=== PATIENT | male | born 1945 | race Hispanic/Latino ===

== ENCOUNTER 2017-08-07 18:13 | Inpatient (IN) | payer MEDICARE ==
[~2017-08-07] VITALS: Ht 152.4 cm; Wt 118.5 kg
[2017-08-07 22:04] LABS: BASOPHILS % 0.3 % (0.0-1.0); HEMATOCRIT 44.2 % (38.2-49.6); LYMPHOCYTES # (AUTO) 0.9 (1.0-3.2); LYMPHOCYTES % 7.4 % (18.0-39.1); MEAN CORPUSCULAR HEMOGLOBIN 28.6 pg (28-32); MEAN CORPUSCULAR HGB CONC 33.9 g/dL (31-35); MEAN CORPUSCULAR VOLUME 84.4 fL (81-99); MONOCYTES # (AUTO) 0.9 (0.2-0.8); MONOCYTES % 7.5 % (4.4-11.3); NEUTROPHILS % 84.5 % (38.7-80.0); PLATELET COUNT 188 x10e3/uL (140-360); RED BLOOD COUNT 5.24 x10e6/uL (4.3-5.7); RED CELL DISTRIBUTION WIDTH 14.3 % (11.7-14.4)
[2017-08-07 22:05] LABS: CLARITY,URINE CLOUDY (CLEAR); COLOR,URINE AMBER (YELLOW); KETONES,URINE TRACE (NEGATIVE); LEUKOCYTE ESTERASE ,URINE 1+ (NEGATIVE); NITRITE,URINE NEGATIVE (NEGATIVE); URINE UROBILINOGEN 4 mg/dL (0.2 - 1)
[2017-08-07 22:08] LABS: BILIRUBIN,URINE 2+ (NEGATIVE); PROTEIN,URINE DIPSTICK 2+ (NEGATIVE)
[2017-08-07 22:12] LABS: BACTERIA,URINE MODERATE /HPF; EPITHELIAL CELLS,URINE RARE /LPF
[2017-08-07 22:13] LABS: MUCUS,URINE MODERATE (RARE)
[2017-08-07 22:20] LABS: ALBUMIN 3.6 g/dL (3.5-5.0); ALBUMIN/GLOBULIN RATIO 0.8 (0.8-2.0); ANION GAP 15.3 mmol/L (8-16); CREATININE, SERUM 1.44 mg/dL (0.72-1.25); POTASSIUM 3.3 mmol/L (3.5-5.1)
[2017-08-07] MEDS ORDERED: DIATRIZOATE MEGL/DIATRIZOA SOD 30 ML BTL PO ONE (22:47)
--- NOTE | 2017-08-08 00:05 | Diagnostic Imaging Report ---
CHEST SINGLE (PORTABLE), 08/07/2017 9:36 PM Technique: CHEST SINGLE (PORTABLE) Comparison: None available. Clinical history: Fever Findings: Limited by over penetration. Impression: 1. Mildly enlarged cardiac silhouette likely accentuated by technique. 2. Rounded right hilar 2.6 cm opacity may reflect pulmonary artery, node or lesion. Recommend upright PA and lateral for better evaluation. 3. No acute pulmonary or pleural abnormality. Signed by: Dr Sue Francisco MD on 08/08/2017 12:01 AM
--- NOTE | 2017-08-08 00:21 | Diagnostic Imaging Report ---
EXAM: CT ABDOMEN/PELVIS WO DATE: 08/07/2017 9:36 PM INDICATION: \S\ABD PAIN, FEVER,N,V,D \[id number] \S\2344 \S\Y. No history of prior surgery. COMPARISON: None TECHNIQUE: The abdomen and pelvis were scanned using a multidetector helical scanner. Coronal and sagittal reformations were obtained. Routine protocol performed. IV Contrast: None Oral contrast was administered. FINDINGS: Lack of IV contrast decreases sensitivity in evaluating abdominal and pelvic organs. LOWER THORAX: Right basilar and lingular scarring. LIVER/BILIARY: No masses. No ductal dilatation. GALLBLADDER: Unremarkable SPLEEN: Unremarkable PANCREAS: Unremarkable ADRENALS: No nodules KIDNEYS: No stone disease. No hydronephrosis. GI TRACT: Moderate diffuse dilation of the colon with focal caliber change at the sigmoid, where there is mild focal narrowing and minimal adjacent infiltration of the fat. Possibly pseudosacculation or large diverticulum of the sigmoid proximally. Mild gas and stool is seen distally. VESSELS: Mild atherosclerotic calcification PERITONEUM/RETROPERITONEUM: No free air or fluid LYMPH NODES: No lymphadenopathy REPRODUCTIVE ORGANS/BLADDER: Unremarkable SOFT TISSUES: Small fat-containing umbilical hernia. BONES: No suspicious bone lesions. IMPRESSION: Evaluation of the bowel is degraded by lack of IV contrast. Partial large bowel obstruction with focal caliber change at the sigmoid colon. This could be due to diverticular/ischemic stricture versus neoplasm. Recommend follow up colonoscopy. Signed by: Dr Sue Francisco MD on 08/08/2017 12:17 AM
[2017-08-08] MEDS ORDERED: ACETAMINOPHEN 1000 MG/100 ML IV PRN (01:15)
[2017-08-08] MEDS ORDERED: HYDROMORPHONE 1MG/1ML INJ IV PRN (01:15)
[2017-08-08] MEDS ORDERED: MORPHINE SULFATE 2 MG/ML SYR IV PRN (01:15)
[2017-08-08] MEDS: LEVOFLOXACIN 500MG/D5W 100ML IV SCH (02:00)
[2017-08-08] MEDS: KCL 20MEQ/.9 SOD CHL 1,000 ML IV SCH ×3 (02:00→20:55)
[2017-08-08] MEDS: METRONIDAZOLE 500MG/NS 100ML 100 ML IV SCH ×5 (02:00→23:55)
[2017-08-08] MEDS ORDERED: ONDANSETRON HCL INJ 2 MG/ML VIAL IV PRN (09:30)
[2017-08-08] MEDS ORDERED: MORPHINE SULFATE 5 MG/ML VIAL IV PRN (10:15)
--- NOTE | 2017-08-08 10:30 | History and Physical ---
PCP: Dr. Mark Anthony Christian CONSULTING: Dr. Dave Montalvo CHIEF COMPLAINT 1. Abdominal pain for the past week, progressive for the past 3 days and worsening. 2. Acute diverticulitis of the sigmoid colon. 3. Partial large-bowel obstruction. HISTORY: Patient is a 72-year-old male pending for colonoscopy sometime next week apparently came in with a past week of increasing abdominal pain. CT scan showed possible diverticulitis associated with large-bowel obstruction partially. Patient had abdominal pain. He is otherwise stable at this time. He is pending for further evaluation. He is at baseline with hypertension. Patient's pain improved with pain medication. In the emergency room, CT scan was done. Flagyl and Levaquin initiated. Patient is otherwise stable at this time. PAST MEDICAL HISTORY: Hypertension. PAST SURGICAL HISTORY: Knee surgery. SOCIAL HISTORY: Patient does not smoke or use alcohol. No regular drugs. ALLERGIES: NO KNOWN ALLERGIES. HOME MEDICATIONS: Not available. REVIEW OF SYSTEMS: Abdominal pain, nausea, vomiting, and fever. PHYSICAL EXAMINATION VITAL SIGNS: Temperature was 100.3, blood pressure 134/75, pulse rate 96, respirations 18. GENERAL: Patient is not in acute distress. Pain controlled. HEENT: Normocephalic, atraumatic and anicteric. NECK: Supple grossly. PULMONARY: Diminished breath sounds. CARDIOVASCULAR: Regular rate and rhythm. ABDOMEN: Soft and obese. Tenderness. No rebound or guarding. EXTREMITIES: No cyanosis or edema. NEUROLOGIC: There is no gross focal deficit. LABORATORY: WBC is 11.8, hemoglobin 15, hematocrit 44.2, and platelets 188,000. Chemistry: Sodium 138, potassium 3.3, chloride 105, bicarb is 21, BUN is 19, creatinine 1.4, glucose is 147. Urinalysis shows 1+ leukocyte esterase, wbcs of [address] scan shows partial large-bowel obstruction at the sigmoid area and also inflammation consistent with diverticulitis. IMPRESSION 1. Acute diverticulitis in the sigmoid area. 2. Partial large-bowel obstruction. 3. Abdominal pain. 4. Electrolyte disorder. 5. Dehydration. 6. Urinary tract infection. 7. Fever. PLAN: IV antibiotics. IV fluids. PPI. Obtain calcitonin level. Continue with IV fluids. Replace electrolytes. Consultation with Dr. Dave Montalvo. The patient will need colonoscopy in the future. Job#: [id number] RI
--- NOTE | 2017-08-08 11:47 | Consultation ---
DATE OF CONSULTATION: August 08, 2017 REQUESTING PHYSICIAN: Dr. Peoples REASON FOR CONSULTATION: Colonic partial bowel obstruction. HISTORY OF PRESENT ILLNESS: Mr. Peñaloza is a pleasant, 72-year-old man who has been having some bowel difficulties over the past 6 months. He has had a large amount of borborygmi as well as some bloating and cramping. He has lost significant weight over this timeframe. He comes in with 3 days of worsening abdominal pain, particularly in the left lower quadrant. It is associated with nausea but no vomiting. CT scan is concerning for sigmoid partial obstruction. PAST MEDICAL HISTORY: Hypertension. MEDICATIONS AND ALLERGIES: Reviewed. Please see MAR and medication reconciliation form. SOCIAL HISTORY: No alcohol, tobacco or illicit substance. REVIEW OF SYSTEMS: A 12-system review is positive for that mentioned in HPI, otherwise unremarkable. PHYSICAL EXAMINATION GENERAL: Pleasant, alert, oriented, in no acute distress. HEENT: Pupils are equal, round and reactive to light. NECK: Supple. LUNGS: Clear. CARDIOVASCULAR: S1 and S2. ABDOMEN: Soft. Mildly tender in lower left quadrant. No rebound, guarding or mass. The abdomen is obese. EXTREMITIES: No clubbing, cyanosis or edema. PSYCH: Calm, cooperative. NEUROLOGIC: Alert, oriented. HEM-ONC: No bruising or adenopathy. Electronic health records reviewed for laboratory and radiologic studies as well as history. ASSESSMENT: Partial colonic obstruction of the sigmoid with inflammation concerning for diverticulitis, rule out underlying malignancy. PLAN: At the current time, he can have just ice chips, but should otherwise remain n.p.o. I agree with having him on antibiotics to cover bowel estelle. He should have a surgical consult to follow with us. Given that it is an [id number] issue, we may need to do a colonoscopy earlier if it does not improve as would be anticipated. Thank you very much for allowing me to see Mr. Peñaloza. We will follow with you. Job#: [id number]
[2017-08-08 15:50] VITALS: BP 157/67
[2017-08-08 16:01] VITALS: BP 157/67
[2017-08-08] MEDS: ENOXAPARIN SOD INJ 40 MG/0.4 ML SYR SC SCH (17:40)
[2017-08-08] MEDS ORDERED: FUROSEMIDE40 MG PO (17:48)
[2017-08-08] MEDS ORDERED: LOSARTAN POTASS25 MG PO (17:48)
[2017-08-08] MEDS ORDERED: DICYCLOMINE HCL10 MG PO (17:48)
[2017-08-08 19:59] VITALS: BP 168/79
[2017-08-09 00:47] VITALS: BP 142/66
[2017-08-09] MEDS: LEVOFLOXACIN 500MG/D5W 100ML IV SCH (00:58)
[2017-08-09 05:32] VITALS: BP 167/69
[2017-08-09] MEDS: KCL 20MEQ/.9 SOD CHL 1,000 ML IV SCH ×2 (05:34→07:15)
[2017-08-09] MEDS: METRONIDAZOLE 500MG/NS 100ML 100 ML IV SCH ×3 (06:39→18:10)
[2017-08-09 06:55] LABS: BASOPHILS % 0.1 % (0.0-1.0); EOSINOPHILS % 0.1 % (0.0-6.0); HEMOGLOBIN 14.3 g/dL (14.0-18.0); LYMPHOCYTES # (AUTO) 1.6 (1.0-3.2); LYMPHOCYTES % 21.2 % (18.0-39.1); MEAN CORPUSCULAR HEMOGLOBIN 28.4 pg (28-32); MEAN CORPUSCULAR VOLUME 83.5 fL (81-99); MONOCYTES # (AUTO) 1.1 (0.2-0.8); MONOCYTES % 14.7 % (4.4-11.3); NEUTROPHILS # (AUTO) 4.8 (2.1-6.9); NEUTROPHILS % 63.5 % (38.7-80.0); PLATELET COUNT 224 x10e3/uL (140-360); RED BLOOD COUNT 5.03 x10e6/uL (4.3-5.7); RED CELL DISTRIBUTION WIDTH 14.5 % (11.7-14.4)
[2017-08-09 07:15] LABS: ALBUMIN 3.1 g/dL (3.5-5.0); ALBUMIN/GLOBULIN RATIO 0.8 (0.8-2.0); ANION GAP 14.5 mmol/L (8-16); CALCIUM 9.2 mg/dL (8.4-10.2); CREATININE, SERUM 1.3 mg/dL (0.72-1.25)
[2017-08-09 07:24] LABS: POTASSIUM 2.5 mmol/L (3.5-5.1)
[2017-08-09 08:02] VITALS: BP 184/82
--- NOTE | 2017-08-09 12:33 | Consultation ---
DATE OF CONSULTATION: August 08, 2017 The patient is a 72-year-old male presenting with complaints of abdominal distention and abdominal pain. Patient says he has had problems with his abdomen with pain for about 6 months, but then he says over the last few days he has felt worse. He has had no appetite and not eaten for several days. He is having some diarrhea, but had not had a normal bowel movement. He complains of pain in the lower abdomen. He came to the emergency room where CT of the abdomen and pelvis was done, which revealed findings of thickening and inflammation in the sigmoid colon with dilated proximal colon with some air and stool seen beyond the area of inflammation. Patient denies nausea or vomiting. PAST MEDICAL HISTORY: Significant for hypertension. PAST SURGICAL HISTORY: The only previous surgery is knee surgery. ALLERGIES: HE HAS NO KNOWN DRUG ALLERGIES. MEDICATIONS: At home are not available. FAMILY HISTORY: Noncontributory. SOCIAL HISTORY: The patient does not smoke cigarettes or drink alcohol. REVIEW OF SYSTEMS: As stated above with abdominal pain, anorexia and diarrhea, but also some nausea. PHYSICAL EXAMINATION GENERAL: The patient is awake, alert and in no distress. VITAL SIGNS: Reveal a low-grade fever. Temperature 99.9. He is not tachycardic. HEENT: Reveals no scleral icterus. NECK: Has no masses. LUNGS: Equal breath sounds are clear bilaterally. CARDIAC: Regular rate and rhythm with no murmur. ABDOMEN: Is distended with mild diffuse tenderness greatest in the left lower abdomen. There are no definite signs of peritonitis. EXTREMITIES: No edema. LAB TESTS: The white blood cell count is 11.86, hemoglobin 15, hematocrit 44. Chemistries: Creatinine is mildly elevated at 1.4. BUN is normal. Potassium is 3.3. ASSESSMENT: This is a 72-year-old male with findings most suggestive of sigmoid diverticulitis thought tumor could not be occluded. He has a partial colonic obstruction, but not completely obstructed on the computerized tomography scan or clinically. At this point, recommend keeping the patient n.p.o. and on intravenous fluids and antibiotics. Hopefully the symptoms will improve. Probably, he will need evaluation with a colonoscopy. This was explained to the patient. Thank you for asking me to see Mr. Peñaloza. Job#: [id number] RI
[2017-08-09 12:34] VITALS: BP 158/71
[2017-08-09] MEDS ORDERED: SOD CHL 0.45%/POT CHL 20MEQ 1,000 ML IV SCH (13:00)
[2017-08-09] MEDS ORDERED: POTASSIUM CHLORIDE 10 MEQ TABCR PO NR (13:30)
[2017-08-09] MEDS: POTASSIUM CHLORIDE 60 MEQ in SODIUM CHLORIDE 0.45% 1,000 ML IV SCH (14:43)
[2017-08-09 16:27] VITALS: BP 190/79
[2017-08-09] MEDS: NIFEDIPINE CR 30 MG TAB PO SCH (17:04)
[2017-08-09] MEDS: ENOXAPARIN SOD INJ 40 MG/0.4 ML SYR SC SCH (17:04)
[2017-08-09 20:12] VITALS: BP 154/67
[2017-08-10] MEDS: METRONIDAZOLE 500MG/NS 100ML 100 ML IV SCH ×5 (00:10→23:44)
[2017-08-10 01:16] VITALS: BP 140/65
[2017-08-10] MEDS: LEVOFLOXACIN 500MG/D5W 100ML IV SCH (01:25)
[2017-08-10] MEDS: POTASSIUM CHLORIDE 60 MEQ in SODIUM CHLORIDE 0.45% 1,000 ML IV SCH ×3 (04:07→23:44)
[2017-08-10 05:00] VITALS: BP 164/88
[2017-08-10 06:41] LABS: BASOPHILS % 0.3 % (0.0-1.0); EOSINOPHILS % 0.3 % (0.0-6.0); HEMATOCRIT 36.6 % (38.2-49.6); HEMOGLOBIN 12.7 g/dL (14.0-18.0); LYMPHOCYTES # (AUTO) 1.3 (1.0-3.2); LYMPHOCYTES % 20.5 % (18.0-39.1); MEAN CORPUSCULAR HEMOGLOBIN 28.5 pg (28-32); MEAN CORPUSCULAR HGB CONC 34.7 g/dL (31-35); MEAN CORPUSCULAR VOLUME 82.2 fL (81-99); MONOCYTES # (AUTO) 0.8 (0.2-0.8); MONOCYTES % 13.3 % (4.4-11.3); NEUTROPHILS # (AUTO) 4.1 (2.1-6.9); PLATELET COUNT 191 x10e3/uL (140-360); RED BLOOD COUNT 4.45 x10e6/uL (4.3-5.7); RED CELL DISTRIBUTION WIDTH 14.3 % (11.7-14.4)
[2017-08-10 07:06] LABS: ANION GAP 11.6 mmol/L (8-16); BLOOD UREA NITROGEN 18 mg/dL (7-26); BUN/CREATININE RATIO 17 (6-25); CALCIUM 8.5 mg/dL (8.4-10.2); CARBON DIOXIDE 24 mmol/L (22-29); CHLORIDE 110 mmol/L (98-107); CREATININE, SERUM 1.03 mg/dL (0.72-1.25); EST GLOMERULAR FILTRATION RATE > 60 ML/MIN (60-); GLUCOSE 91 mg/dL (74-118); MAGNESIUM 1.9 MG/DL (1.3-2.1); PHOSPHORUS 1.6 MG/DL (2.3-4.7); SODIUM 143 mmol/L (136-145)
[2017-08-10 07:25] LABS: POTASSIUM 2.6 mmol/L (3.5-5.1)
[2017-08-10] MEDS ORDERED: POTASSIUM CHLORIDE 20 MEQ TAB CR PO ONE (07:30)
[2017-08-10 07:48] VITALS: BP 149/72
[2017-08-10] MEDS: NIFEDIPINE CR 30 MG TAB PO SCH ×2 (08:54→17:39)
[2017-08-10] MEDS ORDERED: POTASSIUM PHOSPHATE 20 MM in SODIUM CHLORIDE 0.9% 250ML 250 ML IV ONE (10:45)
[2017-08-10 12:16] VITALS: BP 155/70
[2017-08-10 16:05] VITALS: BP 166/77
[2017-08-10] MEDS: ENOXAPARIN SOD INJ 40 MG/0.4 ML SYR SC SCH (17:39)
[2017-08-10 20:00] VITALS: BP 143/82
[2017-08-11 00:15] VITALS: BP 131/52
[2017-08-11] MEDS: LEVOFLOXACIN 500MG/D5W 100ML IV SCH (01:32)
[2017-08-11 04:20] VITALS: BP 126/63
[2017-08-11] MEDS: METRONIDAZOLE 500MG/NS 100ML 100 ML IV SCH ×4 (05:30→23:46)
[2017-08-11 07:07] LABS: BASOPHILS % 0.4 % (0.0-1.0); EOSINOPHILS # (AUTO) 0.1 (0.0-0.4); EOSINOPHILS % 0.8 % (0.0-6.0); HEMATOCRIT 37.6 % (38.2-49.6); LYMPHOCYTES # (AUTO) 1.6 (1.0-3.2); LYMPHOCYTES % 22.9 % (18.0-39.1); MEAN CORPUSCULAR HEMOGLOBIN 28.3 pg (28-32); MEAN CORPUSCULAR HGB CONC 34.6 g/dL (31-35); MEAN CORPUSCULAR VOLUME 81.7 fL (81-99); MONOCYTES # (AUTO) 0.7 (0.2-0.8); MONOCYTES % 10.3 % (4.4-11.3); NEUTROPHILS # (AUTO) 4.6 (2.1-6.9); NEUTROPHILS % 64.5 % (38.7-80.0); PLATELET COUNT 235 x10e3/uL (140-360); RED CELL DISTRIBUTION WIDTH 14.6 % (11.7-14.4)
[2017-08-11 08:04] VITALS: BP 120/62
[2017-08-11 08:17] LABS: ANION GAP 15.7 mmol/L (8-16); BLOOD UREA NITROGEN 15 mg/dL (7-26); BUN/CREATININE RATIO 16 (6-25); CALCIUM 8.6 mg/dL (8.4-10.2); CARBON DIOXIDE 20 mmol/L (22-29); CHLORIDE 110 mmol/L (98-107); CREATININE, SERUM 0.92 mg/dL (0.72-1.25); EST GLOMERULAR FILTRATION RATE > 60 ML/MIN (60-); GLUCOSE 84 mg/dL (74-118); SODIUM 143 mmol/L (136-145)
[2017-08-11 08:23] LABS: POTASSIUM 2.7 mmol/L (3.5-5.1)
[2017-08-11] MEDS: NIFEDIPINE CR 30 MG TAB PO SCH ×2 (10:03→17:31)
[2017-08-11] MEDS ORDERED: POTASSIUM PHOSPHATE 20 MM in SODIUM CHLORIDE 0.9% 250ML 250 ML IV ONE (10:30)
[2017-08-11] MEDS ORDERED: POTASSIUM CHLORIDE 20MEQ/100ML 200 ML IV ONE (11:00)
[2017-08-11] MEDS: POTASSIUM CHLORIDE IV SCH ×2 (11:08→20:54)
[2017-08-11] MEDS: SODIUM CHLORIDE 0.45% IV SCH ×2 (11:08→20:54)
[2017-08-11 11:46] VITALS: BP 133/63
[2017-08-11 15:43] LABS: CREATININE,URINE RANDOM 95.46 mg/dL (63-166)
[2017-08-11 15:44] LABS: POTASSIUM,URINE 25.1 mmol/L
[2017-08-11 16:00] VITALS: BP 152/72
[2017-08-11 17:05] LABS: BLOOD UREA NITROGEN 15 mg/dL (7-26); GLUCOSE 121 mg/dL (74-118); OSMOLALITY,SERUM 278 mOsm/kg (278-305); SODIUM 138 mmol/L (136-145)
[2017-08-11 17:19] LABS: ANION GAP 13.7 mmol/L (8-16); BLOOD UREA NITROGEN 15 mg/dL (7-26); BUN/CREATININE RATIO 14 (6-25); CALCIUM 8.6 mg/dL (8.4-10.2); CARBON DIOXIDE 20 mmol/L (22-29); CHLORIDE 108 mmol/L (98-107); CREATININE, SERUM 1.06 mg/dL (0.72-1.25); EST GLOMERULAR FILTRATION RATE > 60 ML/MIN (60-); GLUCOSE 122 mg/dL (74-118); MAGNESIUM 1.7 MG/DL (1.3-2.1); SODIUM 139 mmol/L (136-145)
[2017-08-11 17:24] LABS: POTASSIUM 2.7 mmol/L (3.5-5.1)
[2017-08-11] MEDS: ENOXAPARIN SOD INJ 40 MG/0.4 ML SYR SC SCH (17:31)
[2017-08-11 20:00] VITALS: BP 151/79
--- NOTE | 2017-08-11 22:34 | Consultation ---
DATE OF CONSULTATION: August 11, 2017 NEPHROLOGY CONSULTATION NOTE REASON FOR CONSULTATION: Hypokalemia. REFERRING PHYSICIAN: Dr. Peoples HISTORY OF PRESENT ILLNESS: This is a 72-year-old pleasant gentleman with the past medical history of hypertension and knee surgery with no renal or electrolyte issues before, but with history of chronic diarrhea for several months now off and on, was admitted with abdominal pain, and hypokalemia with a creatinine of 1.4. He received IV fluids, potassium supplementation, and IV antibiotics for possible diverticulitis on CT scan with large bowel obstruction. His potassium continued to stay low running between 2.5 and 3 for which nephrology consultation obtained for further evaluation and management. At the time of my examination, he appeared in no acute distress and denied any nausea, vomiting, headache, blurring of vision, chest pain, shortness of breath, cough, phlegm, fever, chills, bleeding in the stool, skin rash, joint pains or any focal weakness, but did complain of chronic diarrhea for few months. PAST MEDICAL AND SURGICAL HISTORY: As above. PERSONAL AND SOCIAL HISTORY: No history of alcohol or tobacco. MEDICATION: See the medication sheet that was reviewed. PHYSICAL EXAMINATION GENERAL: He appeared in no acute distress. VITAL SIGNS: Blood pressure was 133/63, respirations 18, heart rate 77, temperature 96.3. HEENT: Head was atraumatic, normocephalic. Pupils were reactive to light. Mouth: Oral mucosa was moist. NECK: Supple. There was no significant lymphadenopathy or thyromegaly. CHEST: Revealed fair air entry. HEART: S1, S2. ABDOMEN: Soft, but slightly distended. Bowel sounds were equivocal. EXTREMITIES: No edema. 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 Cranial nerves were intact. There was no gross motor deficit noted. LABS: Sodium 143, potassium 2.7, chloride 110, CO2 20, anion gap 15.7, BUN 15, creatinine 0.9, down from 1.4 on August 24. White cell count 7.1, hemoglobin 13, hematocrit 37.6, platelets 235,000. CT of the abdomen and pelvis showed partial large bowel obstruction. Chest x-ray did not show any acute pathology. IMPRESSIONS 1. Acute kidney injury with serum creatinine improved from 1.4 to 0.9, possibly from prerenal azotemia. He is nonoliguric. 2. Hypokalemia, most likely secondary to chronic diarrhea; however, with some degree of normal anion gap acidosis. Underlying renal tubular acidosis cannot be ruled out. However, the normal anion gap metabolic acidosis is most likely secondary to chronic diarrhea as well. PLAN 1. Strict I's and O's. 2. Continue present IV fluids with KCl. Give 40 mEq of KCl IV and recheck potassium later today and again, in the morning along with magnesium and phosphorus. Also, check urine sodium, potassium, creatinine, and urine and serum osmolality to calculate transtubular potassium gradient to see if in fact she has concomitant real potassium wasting as well. Further recommendations to follow. Thank you for the consultation. Job#: [id number] CQ
[2017-08-12] MEDS: LEVOFLOXACIN 500MG/D5W 100ML IV SCH (00:50)
[2017-08-12] MEDS: POTASSIUM CHLORIDE 20MEQ/100ML 100 ML IV SCH ×3 (03:15→20:24)
[2017-08-12 04:00] VITALS: BP 130/73
[2017-08-12] MEDS: METRONIDAZOLE 500MG/NS 100ML 100 ML IV SCH ×4 (05:18→23:54)
[2017-08-12] MEDS: SODIUM CHLORIDE 0.45% IV SCH ×2 (07:18→16:07)
[2017-08-12] MEDS: POTASSIUM CHLORIDE IV SCH ×2 (07:18→16:07)
[2017-08-12 08:00] VITALS: BP 135/62
[2017-08-12 08:57] LABS: BASOPHILS % 0.5 % (0.0-1.0); EOSINOPHILS # (AUTO) 0.1 (0.0-0.4); EOSINOPHILS % 1.4 % (0.0-6.0); HEMATOCRIT 40.1 % (38.2-49.6); HEMOGLOBIN 13.9 g/dL (14.0-18.0); MEAN CORPUSCULAR HEMOGLOBIN 28.4 pg (28-32); MEAN CORPUSCULAR HGB CONC 34.7 g/dL (31-35); MONOCYTES # (AUTO) 0.9 (0.2-0.8); MONOCYTES % 10.1 % (4.4-11.3); NEUTROPHILS # (AUTO) 5.5 (2.1-6.9); NEUTROPHILS % 63.7 % (38.7-80.0); PLATELET COUNT 252 x10e3/uL (140-360); RED BLOOD COUNT 4.89 x10e6/uL (4.3-5.7); RED CELL DISTRIBUTION WIDTH 14.7 % (11.7-14.4)
[2017-08-12] MEDS: NIFEDIPINE CR 30 MG TAB PO SCH ×2 (09:00→16:34)
[2017-08-12 09:15] LABS: BLOOD UREA NITROGEN 12 mg/dL (7-26); BUN/CREATININE RATIO 12 (6-25); CALCIUM 8.6 mg/dL (8.4-10.2); CARBON DIOXIDE 21 mmol/L (22-29); CHLORIDE 111 mmol/L (98-107); CREATININE, SERUM 1.04 mg/dL (0.72-1.25); EST GLOMERULAR FILTRATION RATE > 60 ML/MIN (60-); GLUCOSE 113 mg/dL (74-118); MAGNESIUM 1.6 MG/DL (1.3-2.1); PHOSPHORUS 2.5 MG/DL (2.3-4.7); SODIUM 141 mmol/L (136-145)
[2017-08-12 12:00] VITALS: BP 119/56
[2017-08-12] MEDS ORDERED: DEXTROSE IV ONE (12:30)
[2017-08-12] MEDS ORDERED: POTASSIUM CHLORIDE 20MEQ/100ML 300 ML IV ONE (12:30)
[2017-08-12] MEDS ORDERED: SOD CHL IV ONE (12:30)
[2017-08-12] MEDS ORDERED: MAGNESIUM SULFATE 2GM/50ML 50 ML IV ONE (12:30)
[2017-08-12] MEDS ORDERED: POTASSIUM PHOSPHATE IV ONE (12:30)
[2017-08-12 16:00] VITALS: BP 142/67
[2017-08-12] MEDS: ENOXAPARIN SOD INJ 40 MG/0.4 ML SYR SC SCH (16:34)
[2017-08-12 20:00] VITALS: BP 131/60
[2017-08-13 00:24] VITALS: BP 132/60
[2017-08-13] MEDS: LEVOFLOXACIN 500MG/D5W 100ML IV SCH (02:20)
[2017-08-13] MEDS: METRONIDAZOLE 500MG/NS 100ML 100 ML IV SCH ×3 (06:10→17:25)
[2017-08-13] MEDS: POTASSIUM CHLORIDE IV SCH ×2 (06:10→14:30)
[2017-08-13] MEDS: SODIUM CHLORIDE 0.45% IV SCH ×2 (06:10→14:30)
[2017-08-13 07:47] LABS: ALANINE AMINOTRANSFERASE 19 IU/L (0-55); ALBUMIN 2.8 g/dL (3.5-5.0); ALBUMIN/GLOBULIN RATIO 0.8 (0.8-2.0); ALKALINE PHOSPHATASE 79 IU/L (40-150); ANION GAP 8.8 mmol/L (8-16); BLOOD UREA NITROGEN 9 mg/dL (7-26); BUN/CREATININE RATIO 9 (6-25); CALCIUM 8.2 mg/dL (8.4-10.2); CARBON DIOXIDE 22 mmol/L (22-29); CHLORIDE 113 mmol/L (98-107); CREATININE, SERUM 1.01 mg/dL (0.72-1.25); EST GLOMERULAR FILTRATION RATE > 60 ML/MIN (60-); GLUCOSE 116 mg/dL (74-118); MAGNESIUM 1.8 MG/DL (1.3-2.1); PHOSPHORUS 2.9 MG/DL (2.3-4.7); SODIUM 141 mmol/L (136-145)
[2017-08-13 07:51] LABS: POTASSIUM 2.8 mmol/L (3.5-5.1)
[2017-08-13 08:00] VITALS: BP 106/52
[2017-08-13] MEDS: NIFEDIPINE CR 30 MG TAB PO SCH ×2 (09:37→17:25)
[2017-08-13] MEDS ORDERED: POTASSIUM CHLORIDE 20MEQ/100ML 100 ML IV SCH (10:00)
[2017-08-13] MEDS: POTASSIUM CHLORIDE 20MEQ/100ML 100 ML IV SCH ×2 (10:18→14:00)
[2017-08-13] MEDS ORDERED: MAGNESIUM SULFATE 2GM/50ML 50 ML IV ONE (11:45)
[2017-08-13 12:00] VITALS: BP 127/59
[2017-08-13 16:00] VITALS: BP 115/56
[2017-08-13] MEDS: ENOXAPARIN SOD INJ 40 MG/0.4 ML SYR SC SCH (17:25)
[2017-08-13] MEDS ORDERED: HYDROCODONE/APAP 10MG-325MG TAB PO PRN (17:45)
[2017-08-13] MEDS ORDERED: POTASSIUM CHLORIDE 20MEQ/100ML 100 ML IV ONE (18:15)
[2017-08-13] MEDS ORDERED: DIATRIZOATE MEGL/DIATRIZOA SOD 30 ML BTL PO ONE (19:50)
[2017-08-13 20:00] VITALS: BP 130/63
[2017-08-13] MEDS: METRONIDAZOLE 500 MG TAB PO SCH (20:29)
[2017-08-13] MEDS ORDERED: SODIUM CHLORIDE 0.9% 50ML 50 ML ONE (22:25)
[2017-08-13] MEDS ORDERED: IOPAMIDOL 370 MG/ML 200 ML INFUS..BTL INJ ONE (22:25)
--- NOTE | 2017-08-13 22:30 | Diagnostic Imaging Report ---
EXAM: CT ABDOMEN AND PELVIS with IV CONTRAST DATE: 08/13/2017 5:33 PM Time stamp on Exam: 2156 hours INDICATION: Follow-up on abdominal infection COMPARISON: CT of the abdomen and pelvis without IV contrast August 07, 2017 TECHNIQUE: The abdomen and pelvis were scanned using a multidetector helical scanner. Coronal and sagittal reformations were obtained. Routine protocol performed. IV Contrast: 100 cc Isovue-370 Oral Contrast: Gastrografin CTDIvol has been reviewed. It is below the limits set by the Radiation Protocol Committee (RPC). FINDINGS: LOWER THORAX: No consolidations. Focal bronchiectasis right middle lobe. LIVER: No masses BILIARY: The gallbladder is distended without wall thickening or pericholecystic inflammation. SPLEEN: No masses PANCREAS: No masses ADRENALS: No nodules KIDNEYS: Symmetric perfusion. No enhancing masses. No hydronephrosis. GI TRACT: Focal narrowing of the sigmoid colon with mild surrounding inflammation resulting in persistent partial large bowel obstruction. No associated abscess. VESSELS: Unremarkable PERITONEUM/RETROPERITONEUM: No free air or fluid LYMPH NODES: No lymphadenopathy REPRODUCTIVE ORGANS: Unremarkable BLADDER: Unremarkable SOFT TISSUES: Tiny fat-containing umbilical hernia. Subcutaneous emphysema anterior abdominal subcutaneous tissues consistent with injection site. Mild dependent subcutaneous edema posteriorly. BONES: No suspicious bone lesions. IMPRESSION: Stable findings of partial large bowel obstruction secondary to narrowing of the sigmoid colon that could be secondary to stricture or neoplasm. No abscess formation. Signed by: Dr. Jesica Beasley M.D. on 08/13/2017 10:26 PM
[2017-08-14] VITALS: BP 122/58
[2017-08-14] MEDS ORDERED: IOPAMIDOL 370 MG/ML 200 ML INFUS..BTL INJ ONE (03:23)
[2017-08-14] MEDS ORDERED: SODIUM CHLORIDE 0.9% 50ML 50 ML ONE (03:23)
[2017-08-14 04:00] VITALS: BP 126/58
[2017-08-14] MEDS: METRONIDAZOLE 500 MG TAB PO SCH ×3 (05:25→22:00)
[2017-08-14 06:04] LABS: BASOPHILS # (AUTO) 0.1 (0.0-0.1); BASOPHILS % 0.6 % (0.0-1.0); EOSINOPHILS # (AUTO) 0.2 (0.0-0.4); EOSINOPHILS % 2.2 % (0.0-6.0); HEMATOCRIT 37.5 % (38.2-49.6); HEMOGLOBIN 13.1 g/dL (14.0-18.0); LYMPHOCYTES # (AUTO) 2.1 (1.0-3.2); LYMPHOCYTES % 24.3 % (18.0-39.1); MEAN CORPUSCULAR HEMOGLOBIN 28.6 pg (28-32); MEAN CORPUSCULAR HGB CONC 34.9 g/dL (31-35); MEAN CORPUSCULAR VOLUME 81.9 fL (81-99); MONOCYTES # (AUTO) 0.7 (0.2-0.8); NEUTROPHILS # (AUTO) 5.2 (2.1-6.9); PLATELET COUNT 268 x10e3/uL (140-360); RED BLOOD COUNT 4.58 x10e6/uL (4.3-5.7); RED CELL DISTRIBUTION WIDTH 14.9 % (11.7-14.4)
[2017-08-14 06:35] LABS: ALANINE AMINOTRANSFERASE 21 IU/L (0-55); ALBUMIN 2.9 g/dL (3.5-5.0); ALBUMIN/GLOBULIN RATIO 0.9 (0.8-2.0); ALKALINE PHOSPHATASE 80 IU/L (40-150); ANION GAP 9.7 mmol/L (8-16); BLOOD UREA NITROGEN 7 mg/dL (7-26); BUN/CREATININE RATIO 7 (6-25); CALCIUM 8.3 mg/dL (8.4-10.2); CARBON DIOXIDE 21 mmol/L (22-29); CHLORIDE 112 mmol/L (98-107); CREATININE, SERUM 0.99 mg/dL (0.72-1.25); EST GLOMERULAR FILTRATION RATE > 60 ML/MIN (60-); GLUCOSE 117 mg/dL (74-118); MAGNESIUM 1.9 MG/DL (1.3-2.1); PHOSPHORUS 3.8 MG/DL (2.3-4.7); SODIUM 140 mmol/L (136-145)
[2017-08-14 06:45] LABS: POTASSIUM 2.7 mmol/L (3.5-5.1)
[2017-08-14] MEDS ORDERED: POTASSIUM CHLORIDE 20MEQ/100ML 300 ML IV ONE (07:15)
[2017-08-14] MEDS ORDERED: SODIUM CHLORIDE 0.9% IV SCH (07:45)
[2017-08-14] MEDS ORDERED: POTASSIUM CHL IV SCH (07:45)
[2017-08-14] MEDS ORDERED: SODIUM CHLORIDE 0.9% 500ML 500 ML ONE (08:00)
[2017-08-14 08:01] VITALS: BP 120/58
[2017-08-14] MEDS: NIFEDIPINE CR 30 MG TAB PO SCH ×2 (08:14→16:53)
[2017-08-14] MEDS: LEVOFLOXACIN 500 MG TAB PO SCH (08:14)
[2017-08-14 08:20] LABS: EOSINOPHILS % (MANUAL) 4 % (0-7); LYMPHOCYTES % (MANUAL) 27 % (19-48); METAMYELOCYTES % (MANUAL) 2 % (0-0); MONOCYTES % (MANUAL) 6 % (3.4-9.0); NEUTROPHILS % (MANUAL) 61 % (40-74); PLATELET ESTIMATE ADEQUATE; RBC MORPHOLOGY COMMENT NORMAL
[2017-08-14 08:21] LABS: ANISOCYTOSIS SLIGHT; PLATELET MORPHOLOGY COMMENT NORMAL
[2017-08-14] MEDS ORDERED: POTASSIUM CHLORIDE 10 MEQ TABCR PO SCH ×2 (10:00→17:00)
[2017-08-14 11:45] VITALS: BP 111/70
[2017-08-14] MEDS ORDERED: HYDRALAZINE HCL 20 MG/ML VIAL IV PRN (11:45)
[2017-08-14] MEDS: SPIRONOLACTONE 25 MG TAB PO SCH (13:01)
[2017-08-14 16:00] VITALS: BP 135/70
[2017-08-14 19:55] VITALS: BP 106/60
[2017-08-14] MEDS ORDERED: POTASSIUM CHLORIDE 20 MEQ TAB CR PO ONE (21:00)
[2017-08-15 00:32] VITALS: BP 105/52
[2017-08-15] MEDS: METRONIDAZOLE 500 MG TAB PO SCH ×3 (05:32→22:04)
[2017-08-15 05:49] VITALS: BP 111/48
[2017-08-15 07:24] LABS: ANION GAP 10.2 mmol/L (8-16); BLOOD UREA NITROGEN 9 mg/dL (7-26); BUN/CREATININE RATIO 9 (6-25); CALCIUM 8.4 mg/dL (8.4-10.2); CARBON DIOXIDE 19 mmol/L (22-29); CHLORIDE 115 mmol/L (98-107); CREATININE, SERUM 1.04 mg/dL (0.72-1.25); EST GLOMERULAR FILTRATION RATE > 60 ML/MIN (60-); GLUCOSE 114 mg/dL (74-118); MAGNESIUM 1.9 MG/DL (1.3-2.1); POTASSIUM 3.2 mmol/L (3.5-5.1); SODIUM 141 mmol/L (136-145)
[2017-08-15] MEDS ORDERED: POTASSIUM CHLORIDE 20MEQ/100ML 300 ML IV ONE (08:00)
[2017-08-15 08:29] VITALS: BP 112/55
[2017-08-15] MEDS ORDERED: POTASSIUM CHLORIDE IV SCH (09:00)
[2017-08-15] MEDS ORDERED: SODIUM CHLORIDE 0.9% IV SCH (09:00)
[2017-08-15] MEDS: NIFEDIPINE CR 30 MG TAB PO SCH ×2 (09:00→16:33)
[2017-08-15] MEDS: LEVOFLOXACIN 500 MG TAB PO SCH (09:11)
[2017-08-15] MEDS: SPIRONOLACTONE 25 MG TAB PO SCH (09:11)
[2017-08-15] MEDS ORDERED: CHOLESTYRAMINE 4 GM PACKET PO ONE (11:45)
[2017-08-15 12:47] VITALS: BP 149/71
[2017-08-15] MEDS ORDERED: SODIUM CHLORIDE 0.9% 500ML 500 ML ONE (13:28)
[2017-08-15 16:10] VITALS: BP 143/67
[2017-08-15] MEDS: POTASSIUM CITRATE 10 MEQ TAB PO SCH (16:33)
[2017-08-15] MEDS: CHOLESTYRAMINE 4 GM PACKET PO SCH (16:33)
[2017-08-15 20:00] VITALS: BP 132/64
[2017-08-16 00:48] VITALS: BP 150/73
[2017-08-16 04:51] VITALS: BP 141/73
[2017-08-16] MEDS: METRONIDAZOLE 500 MG TAB PO SCH ×3 (05:35→21:51)
[2017-08-16 06:00] LABS: BASOPHILS % 0.5 % (0.0-1.0); EOSINOPHILS # (AUTO) 0.2 (0.0-0.4); HEMOGLOBIN 12.7 g/dL (14.0-18.0); LYMPHOCYTES # (AUTO) 2.3 (1.0-3.2); LYMPHOCYTES % 25.9 % (18.0-39.1); MEAN CORPUSCULAR HEMOGLOBIN 27.9 pg (28-32); MEAN CORPUSCULAR HGB CONC 33.4 g/dL (31-35); MEAN CORPUSCULAR VOLUME 83.5 fL (81-99); MONOCYTES # (AUTO) 0.7 (0.2-0.8); MONOCYTES % 8.1 % (4.4-11.3); NEUTROPHILS # (AUTO) 5.3 (2.1-6.9); NEUTROPHILS % 60.1 % (38.7-80.0); PLATELET COUNT 250 x10e3/uL (140-360); RED BLOOD COUNT 4.55 x10e6/uL (4.3-5.7); RED CELL DISTRIBUTION WIDTH 15.2 % (11.7-14.4)
[2017-08-16 06:37] LABS: ANION GAP 9.2 mmol/L (8-16); BLOOD UREA NITROGEN 9 mg/dL (7-26); BUN/CREATININE RATIO 9 (6-25); CALCIUM 8.3 mg/dL (8.4-10.2); CARBON DIOXIDE 20 mmol/L (22-29); CHLORIDE 115 mmol/L (98-107); CREATININE, SERUM 1.01 mg/dL (0.72-1.25); EST GLOMERULAR FILTRATION RATE > 60 ML/MIN (60-); GLUCOSE 114 mg/dL (74-118); MAGNESIUM 1.8 MG/DL (1.3-2.1); PHOSPHORUS 2.6 MG/DL (2.3-4.7); POTASSIUM 3.2 mmol/L (3.5-5.1); SODIUM 141 mmol/L (136-145)
[2017-08-16 08:00] VITALS: BP 121/61
[2017-08-16] MEDS: CHOLESTYRAMINE 4 GM PACKET PO SCH ×2 (09:00→17:00)
[2017-08-16] MEDS: LEVOFLOXACIN 500 MG TAB PO SCH (09:00)
[2017-08-16] MEDS: SPIRONOLACTONE 25 MG TAB PO SCH (09:00)
[2017-08-16] MEDS: NIFEDIPINE CR 30 MG TAB PO SCH ×2 (09:00→17:00)
[2017-08-16] MEDS ORDERED: POTASSIUM CHLORIDE 10 MEQ TABCR PO ONE (09:30)
[2017-08-16 12:00] VITALS: BP 132/58
[2017-08-16] MEDS: POTASSIUM CITRATE 10 MEQ TAB PO SCH ×3 (12:14→21:00)
[2017-08-16 16:00] VITALS: BP 123/62
[2017-08-16 20:00] VITALS: BP_SYST 118; BP_SYST 134; BP_DIAS 59; BP_DIAS 62
[2017-08-17] VITALS: BP 126/59
[2017-08-17 04:00] VITALS: BP 134/91
[2017-08-17] MEDS: METRONIDAZOLE 500 MG TAB PO SCH ×3 (05:07→22:55)
[2017-08-17 07:05] LABS: ANION GAP 9.9 mmol/L (8-16); BLOOD UREA NITROGEN 10 mg/dL (7-26); BUN/CREATININE RATIO 10 (6-25); CALCIUM 8.6 mg/dL (8.4-10.2); CARBON DIOXIDE 22 mmol/L (22-29); CHLORIDE 109 mmol/L (98-107); CREATININE, SERUM 0.98 mg/dL (0.72-1.25); EST GLOMERULAR FILTRATION RATE > 60 ML/MIN (60-); GLUCOSE 109 mg/dL (74-118); SODIUM 138 mmol/L (136-145)
[2017-08-17 07:25] LABS: POTASSIUM 2.9 mmol/L (3.5-5.1)
[2017-08-17 08:00] VITALS: BP 118/63
[2017-08-17] MEDS: LEVOFLOXACIN 500 MG TAB PO SCH (08:19)
[2017-08-17] MEDS: NIFEDIPINE CR 30 MG TAB PO SCH ×2 (08:20→17:00)
[2017-08-17] MEDS: POTASSIUM CITRATE 10 MEQ TAB PO SCH ×3 (09:00→22:55)
[2017-08-17] MEDS ORDERED: POTASSIUM CHLORIDE 20MEQ/100ML 200 ML IV ONE (09:00)
[2017-08-17] MEDS: CHOLESTYRAMINE 4 GM PACKET PO SCH ×2 (09:00→17:00)
[2017-08-17] MEDS ORDERED: POTASSIUM CHLORIDE 20 MEQ TAB CR PO ONE ×2 (09:00→19:30)
[2017-08-17] MEDS: SPIRONOLACTONE 25 MG TAB PO SCH (09:00)
[2017-08-17] MEDS: DICYCLOMINE HCL 10 MG CAP PO SCH ×2 (11:30→16:30)
[2017-08-17 12:00] VITALS: BP 100/57
[2017-08-17 16:00] VITALS: BP 116/58
[2017-08-17 20:00] VITALS: BP 133/88
--- NOTE | 2017-08-17 20:01 | Diagnostic Imaging Report ---
EXAM: ABDOMEN-1VIEW (KUB), supine portable DATE: 08/17/2017 6:41 PM Time stamp on exam: 1939 hours INDICATION: Abdominal distention COMPARISON: CT of the abdomen and pelvis August 13, 2017 FINDINGS: LINES/TUBES: None BOWEL PATTERN: Stable air distention of the transverse colon. Generalized paucity of small bowel gas. SOFT TISSUES: Limited evaluation for calcifications. LUNG BASES: Not included BONES: No acute findings. IMPRESSION: Stable findings of partial large bowel obstruction. Signed by: Dr. Jesica Beasley M.D. on 08/17/2017 7:57 PM
[2017-08-18] VITALS: BP 138/66
[2017-08-18] MEDS: METRONIDAZOLE 500 MG TAB PO SCH (05:32)
[2017-08-18 08:00] VITALS: BP 124/72
[2017-08-18 08:58] LABS: ANION GAP 9.4 mmol/L (8-16); BLOOD UREA NITROGEN 12 mg/dL (7-26); BUN/CREATININE RATIO 11 (6-25); CALCIUM 8.7 mg/dL (8.4-10.2); CARBON DIOXIDE 21 mmol/L (22-29); CHLORIDE 113 mmol/L (98-107); EST GLOMERULAR FILTRATION RATE > 60 ML/MIN (60-); GLUCOSE 111 mg/dL (74-118); POTASSIUM 3.4 mmol/L (3.5-5.1); SODIUM 140 mmol/L (136-145)
[2017-08-18] MEDS: SPIRONOLACTONE 25 MG TAB PO SCH (09:33)
[2017-08-18] MEDS: LEVOFLOXACIN 500 MG TAB PO SCH (09:33)
[2017-08-18] MEDS: DICYCLOMINE HCL 10 MG CAP PO SCH (09:33)
[2017-08-18] MEDS: CHOLESTYRAMINE 4 GM PACKET PO SCH (09:34)
[2017-08-18] MEDS: NIFEDIPINE CR 30 MG TAB PO SCH (09:34)
[2017-08-18] MEDS: POTASSIUM CITRATE 10 MEQ TAB PO SCH (09:34)
[2017-08-18 12:00] VITALS: BP 112/68
--- NOTE | 2017-08-19 23:49 | Discharge Summary ---
PCP: Dr. Mark Anthony Christian CONSULTANTS: 1. Dr. Dave Montalvo 2. Dr. Kristian Anton 3. Dr. Vamshi Moses FINAL DIAGNOSES: 1. Sigmoid diverticulitis. 2. 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 3. Persistent hypokalemia that is low potassium. 4. Status post dehydration. 5. Obesity. SUMMARY: A 72-year-old male came in with acute diverticulitis in the sigmoid area. He is also found to have a stricture along the area of the sigmoid. with large-bowel obstruction. The patient will need colonoscopy at a later date and subsequently most likely will need surgical intervention. He is doing much better now. Only problem is his potassium, which is persistently low, which is replaced, today is 3.2. The patient will receive his potassium today. At this time, he is stable. The diarrhea was most likely secondary to the strictures. He needs to have his stool softener. Patient is stable at this time. He will follow up with Dr. Montalvo as an outpatient. He will follow up with Dr. Anton as well. Patient will need a colonoscopy prior to his surgical intervention. At this time, the patient will go home, to resume his home medication including the Bentyl and the losartan 50 mg daily. New prescription Aldactone 50 mg daily, MiraLax 17 g b.i.d., Colace 100 mg b.i.d., potassium citrate 20 mEq b.i.d., Bystolic 10 mg daily. The patient is stable, discharged home today. Follow up as an outpatient as instructed. Job#: [id number]
== END 2017-08-18 12:53 | disposition home or self-care (01) | DRG 389 ==
LOC: ER 18:13 → ERHOLD 08-08 01:49 → MED/SURG2 08-08 15:13
PROVIDERS: ADMIT Internal Medicine; ATTEND Internal Medicine
DX: K56.600 Partial intestinal obstruction, unspecified as to cause (principal); N17.9 Acute kidney failure, unspecified; E87.2 Acidosis; E84.19 Cystic fibrosis with other intestinal manifestations; E66.01 Morbid (severe) obesity due to excess calories; E83.51 Hypocalcemia; N39.0 Urinary tract infection, site not specified; Z68.43 Body mass index [BMI] 50.0-59.9, adult; K57.90 Diverticulosis of intestine, part unspecified, without perforation or abscess without bleeding; E86.0 Dehydration; E87.6 Hypokalemia; E87.8 Other disorders of electrolyte and fluid balance, not elsewhere classified; I12.9 Hypertensive chronic kidney disease with stage 1 through stage 4 chronic kidney disease, or unspecified chronic kidney disease; N18.9 Chronic kidney disease, unspecified
CPT/HCPCS: 36415; 71010; 74000; 74176; 74177; 80048; 80053; 81001; 82150; 82308; 82570; 82947; 83690; 83735; 83935; 84100; 84132; 84133; 84295; 84300; 84520; 85025; 87086; 87400; 87493; 93005; 99284; J1170; J1650; J1956; J3480; J7040; J7050; Q9967

== ENCOUNTER → 2018-09-23 | Outpatient (CLI) | payer MEDICARE ==
[~2018-09-23] MED LIST: DICYCLOMINE HCL10 MG PO; FUROSEMIDE40 MG PO; IOPAMIDOL 370 MG/ML 200 ML INFUS..BTL INJ ONE; LOSARTAN POTASS25 MG PO; SODIUM CHLORIDE 0.9% 50ML 50 ML ONE
[2018-09-23 08:39] LABS: BLOOD UREA NITROGEN 19 mg/dL (7-26); BUN/CREATININE RATIO 17 (6-25); CREATININE, SERUM 1.11 mg/dL (0.72-1.25); EST GLOMERULAR FILTRATION RATE > 60 ML/MIN (60-)
--- NOTE | 2018-09-23 10:21 | Diagnostic Imaging Report ---
EXAM: CT ABDOMEN AND PELVIS with IV CONTRAST INDICATION: Abdominal distension, weight loss, abdominal pain. COMPARISON: CT of the abdomen and pelvis without IV contrast 08/13/2017 TECHNIQUE: The abdomen and pelvis were scanned using a multidetector helical scanner. Coronal and sagittal reformations were obtained. Routine protocol performed. Dose modulation, iterative reconstruction, and/or weight based adjustment of the mA/kV was utilized to reduce the radiation dose to as low as reasonably achievable. IV Contrast: 100 cc Isovue-370 Oral Contrast: Gastrografin RADIATION DOSE: DLP: 791.9 mGycm CTDIvol has been reviewed. It is below the limits set by the Radiation Protocol Committee (RPC). FINDINGS: LOWER THORAX: Again noted is focal bronchiectasis in the right middle lobe. No evidence of consolidation. LIVER: No evidence of mass. No evidence of biliary ductal dilatation. The gallbladder is unremarkable in appearance. SPLEEN: No evidence of splenomegaly. PANCREAS: No evidence of mass or ductal dilatation. ADRENALS: No nodules KIDNEYS: Symmetric perfusion. No enhancing masses. No hydronephrosis or stone. GI TRACT: Again noted is focal narrowing of the sigmoid colon (series 3, image 154) with mild surrounding inflammation resulting in persistent dilatation of proximal and mid large bowel loops. Small bowel loops are nondilated. VESSELS: There are scattered atherosclerotic calcifications in the aorta and branch vessels. PERITONEUM/RETROPERITONEUM: No free air or fluid LYMPH NODES: No lymphadenopathy PELVIS: The bladder is unremarkable. Prostatomegaly. BONES/SOFT TISSUES: No acute osseous abnormality. Tiny fat-containing umbilical hernia. Mild anterior wedge compression deformity at T12 is unchanged. Degenerative disc changes, most pronounced at T12-L1 and L1-L2. IMPRESSION: Stable findings of partial large bowel obstruction secondary to narrowing of the sigmoid colon, which could be secondary to stricture or neoplasm, similar in appearance to CT on 08/13/2017. Correlation with colonoscopic findings is suggested. Signed by: Dr. Neil Bosch MD on 09/23/2018 10:17 AM
== END ==
LOC: CT 07:27
PROVIDERS: ATTEND Internal Medicine Gastroenterology
DX: R14.0 Abdominal distension (gaseous) (principal); R10.9 Unspecified abdominal pain; R19.7 Diarrhea, unspecified; E66.9 Obesity, unspecified; R63.4 Abnormal weight loss; Z71.3 Dietary counseling and surveillance
CPT/HCPCS: 36415; 74177; 82565; 84520; Q9967

== ENCOUNTER → 2018-11-12 | Day surgery (SDC) | payer MEDICARE ==
[2018-11-11 13:10] LABS: BASOPHILS % 0.2 % (0.0-1.0); EOSINOPHILS # (AUTO) 0.1 (0.0-0.4); EOSINOPHILS % 1.6 % (0.0-6.0); HEMATOCRIT 38.9 % (38.2-49.6); HEMOGLOBIN 12.6 g/dL (14.0-18.0); LYMPHOCYTES # (AUTO) 1.7 (1.0-3.2); LYMPHOCYTES % 25.7 % (18.0-39.1); MEAN CORPUSCULAR HEMOGLOBIN 28.4 pg (28-32); MEAN CORPUSCULAR HGB CONC 32.4 g/dL (31-35); MEAN CORPUSCULAR VOLUME 87.6 fL (81-99); MONOCYTES # (AUTO) 0.5 (0.2-0.8); MONOCYTES % 8.2 % (4.4-11.3); NEUTROPHILS # (AUTO) 4.1 (2.1-6.9); NEUTROPHILS % 64.1 % (38.7-80.0); PLATELET COUNT 170 x10e3/uL (140-360); RED BLOOD COUNT 4.44 x10e6/uL (4.3-5.7); RED CELL DISTRIBUTION WIDTH 13.8 % (11.7-14.4)
[~2018-11-12] MED LIST changes: -IOPAMIDOL 370 MG/ML 200 ML INFUS..BTL INJ ONE; +OMEPRAZOLE40 MG PO; +PROPOFOL IV EMULSION 10 MG/ML 20 ML VIAL ONE; -SODIUM CHLORIDE 0.9% 50ML 50 ML ONE
--- OUTSIDE RECORDS SUMMARY | 2018-11-12 06:56 | XMS REPORT | Continuity of Care Document ---
Author Author Emily naldo [facility] Interface Address Unknown Phone Unavailable Problems Problem Status Onset Date Classification Date Reported Comments Source R06.02 - SHORTNESS OF BREATH Active 12/20/2016 MACHO Jon Medications Medication Details Route Status Patient Instructions Ordering Provider Order Date Source Allergies, Adverse Reactions, Alerts Substance Category Reaction Severity Reaction type Status Date Reported Comments Source Immunizations Immunization Date Given Site Status Last Updated Comments Source Results Order Name Results Value Reference Range Date Interpretation Comments Source Retroperitoneal Complete US Retroperitoneal Complete US Exam: Bilateral renal ultrasound. Reason for Exam: N18.3 Chronic kidney disease, stage 3 (moderate) - N18.3 Chronic kidney disease, stage 3 (moderate) Comparison Exam: None Discussion: Multiplanar grayscale and color Doppler ultrasound of the kidneys, aorta, IVC, and urinary bladder. Right kidney: Size: 1.2 x 5.8 x 1.7 cm. Cortical thickness measures 1.2 cm. Hydronephrosis: None. Echogenicity: Unremarkable Calculi/Cysts/Masses: None. Left kidney: Size: 11.0 x 5.4 x 5.2 cm. Cortical thickness measures 1.2 cm. Hydronephrosis: None. Echogenicity: Unremarkable Calculi/Cysts/Masses: None. Abdominal aorta/Iliac arteries: Visualized portions are unremarkable. Inferior vena cava: Visualized portions are unremarkable Bladder: Unremarkable. IMPRESSION: 1. Unremarkable renal ultrasound. 12/27/2017 - - Read by: Pierre Briggs MD Dictated Date/time: 12/27/17 15:30 Electronically Signed by: Pierre Briggs MD 12/27/17 15:33 FINAL REPORT HENRI Jon Chest 2 views DX Chest 2 views DX EXAM: XR CHEST 2 VIEWS DATE: 12/20/2016 10:55 AM CDT INDICATION: shortness of breath COMPARISON: 11/25/2013 TECHNIQUE: PA and lateral chest radiographs FINDINGS: Lung volumes are low. There are mild bibasilar streaky opacities. No pleural effusion is seen. The lungs are otherwise clear. The cardiomediastinal silhouette is normal. There is no acute bony abnormality. IMPRESSION: Bibasilar subsegmental atelectasis and/or scarring. SL: [id number] 12/20/2016 - - Read by: Luiz Marti Dictated Date/time: 12/20/16 11:55 Electronically Signed by: Luiz Marti 12/20/16 11:58 FINAL REPORT MACHO Jon Vital Signs Vital Sign Value Date Comments Source Encounters Location Location Details Encounter Type Encounter Number Reason For Visit Attending Provider ADM Date DC Date Status Source [facility] [id number] Mark Anthony Christian 12/20/2016 12/21/2016 MACHO Jon [facility] [place] [facility] [id number] Stevan Martinez 12/27/2017 12/28/2017 MACHO Jon Procedures Procedure Code Date Perfomer Comments Source
--- OUTSIDE RECORDS SUMMARY | 2018-11-12 06:57 | XMS REPORT | Summary of Care ---
Author Author [facility] [place] Organization [facility] [place] Address Unknown Phone Unavailable Encounter [facility] Encntr_alicathleen(FIN) [id number] Date(s): 12/20/16 - 12/20/16 [facility] [place] [address] [phone] Discharge Disposition: Home or Self Care Attending Physician: Mark Anthony Christian MD Vital Signs No data available for this section Problem List No data available for this section Allergies, Adverse Reactions, Alerts Substance Reaction Severity Status NKDA Active Medications No data available for this section Results No data available for this section Immunizations No data available for this section Procedures No data available for this section Social History No data available for this section Assessment and Plan No data available for this section
--- OUTSIDE RECORDS SUMMARY | 2018-11-12 06:57 | XMS REPORT ---
Author Author [facility] Address Unknown Phone Unavailable Care Team Providers Care Manager Oncology Name Role Phone German CASE Unavailable Unavailable KATHERINE WALL Unavailable Unavailable Problems This patient has no known problems. Allergies, Adverse Reactions, Alerts This patient has no known allergies or adverse reactions. Medications This patient has no known medications. Results Test Description Test Time Test Comments Text Results Atomic Results Result Comments CT ABDOMEN/PELVIS W 2018-09-23 10:05:00 [place] [address] Patient Name: PADMINI WALTERS JR MR #: [id number] : 1945 Age/Sex: 73/M Req #: [id number] Adm Physician: Ordered by: JANET CASE MD Report #: [id number] Location: CT Room/Bed: Procedure: [id number] CT/CT ABDOMEN/PELVIS W Exam Date: 09/23/18 Exam Time: 0930 REPORT STATUS: Signed EXAM: CT ABDOMEN AND PELVIS with IV CONTRAST INDICATION: Abdominal distension, weight loss, abdominal pain. COMPARISON: CT of the abdomen and pelvis without IV contrast 08/13/2017 TECHNIQUE: The abdomen and pelvis were scanned using a multidetector helical scanner. Coronal and sagittal reformations were obtained. Routine protocol performed. Dose modulation, iterative reconstruction, and/or weight based adjustment of the mA/kV was utilized to reduce the radiation dose to as low as reasonably achievable. IV Contrast: 100 cc Isovue-370 Oral Contrast: Gastrografin RADIATION DOSE: DLP: 791.9 mGycm CTDIvol has been reviewed. It is below the limits set by the Radiation Protocol Committee (RPC). FINDINGS: LOWER THORAX: Again noted is focal bronchiectasis in the right middle lobe. No evidence of consolidation. LIVER: No evidence of mass. No evidence of biliary ductal dilatation. The gallbladder is unremarkable in appearance. SPLEEN: No evidence of splenomegaly. PANCREAS: No evidence of mass or ductal dilatation. ADRENALS: No nodules KIDNEYS: Symmetric perfusion. No enhancing masses. No hydronephrosis or stone. GI TRACT: Again noted is focal narrowing of the sigmoid colon (series 3, image 154) with mild surrounding inflammation resulting in persistent dilatation of proximal and mid large bowel loops. Small bowel loops are nondilated. VESSELS: There are scattered atherosclerotic calcifications in the aorta and branch vessels. PERITONEUM/RETROPERITONEUM: No free air or fluid LYMPH NODES: No lymphadenopathy PELVIS: The bladder is unremarkable. Prostatomegaly. BONES/SOFT TISSUES: No acute osseous abnormality. Tiny fat-containing umbilical hernia. Mild anterior wedge compression deformity at T12 is unchanged. Degenerative disc changes, most pronounced at T12-L1 and L1-L2. IMPRESSION: Stable findings of partial large bowel obstruction secondary to narrowing of the sigmoid colon, which could be secondary to stricture or neoplasm, similar in appearance to CT on 08/13/2017. Correlation with colonoscopic findings is suggested. Signed by: Dr. Che Sánchez MD on 09/23/2018 10:17 AM Dictated By: CHE SÁNCHEZ MD 1017 Transcribed By: STEPHEN on 09/23/18 1017 COPY TO: JANET CASE MD ABDOMEN-[facility] ([facility]) [place] [address] Patient Name: PADMINI WALTERS JR MR #: [id number] : 1945 Age/Sex: 72/M [id number] Req #: [id number] Adm Physician: KATHERINE WALL MD Ordered by: KATHERINE WALL MD Report #: [id number] Location: MED/SURG2 Room/Bed: [facility] Procedure: [id number] DX/ABDOMEN-1VIEW (KUB) Exam Date: Exam Time: REPORT STATUS: Signed EXAM: ABDOMEN-1VIEW (KUB), supine portable DATE: 08/17/2017 6:41 PM Time stamp on exam: 1939 hours INDICATION: Abdominal distention COMPARISON: CT of the abdomen and pelvis August 13, 2017 FINDINGS: LINES/TUBES: None BOWEL PATTERN: Stable air distention of the transverse colon. Generalized paucity of small bowel gas. SOFT TISSUES: Limited evaluation for calcifications. LUNG BASES: Not included BONES: No acute findings. IMPRESSION: Stable findings of partial large bowel obstruction. Signed by: Dr. Roldan Beasley M.D. on 08/17/2017 7:57 PM Dictated By: ROLDAN BEASLEY MD 56 Transcribed By: STEPHEN on 08/17/171956 COPY TO: KATHERINE WALL MD CT ABDOMEN/PELVIS [place] [address] Patient Name: PDAMINI WALTERS JR MR #: [id number] : 1945 Age/Sex: 72/M [id number] Req #: [id number] Adm Physician: KATHERINE WALL MD Ordered by: KATHERINE WALL MD Report #: [id number] Location: MED/SURG2 Room/Bed: [facility] Procedure: [id number] CT/CT ABDOMEN/PELVIS W Exam Date: 08/13/17 Exam Time: 2200 REPORT STATUS: Signed EXAM: CT ABDOMEN AND PELVIS with IV CONTRAST DATE: 08/13/2017 5:33 PM Time stamp on Exam: 2156 hours INDICATION: Follow- up on abdominal infection COMPARISON: CT of the abdomen and pelvis without IV contrast August 07, 2017 TECHNIQUE: The abdomen and pelvis were scanned using a multidetector helical scanner. Coronal and sagittal reformations were obtained. Routine protocol performed. IV Contrast: 100 cc Isovue-370 Oral Contrast: Gastrografin CTDIvol has been reviewed. It is below the limits set by the Radiation Protocol Committee (RPC). FINDINGS: LOWER THORAX: No consolidations. Focal bronchiectasis right middle lobe. LIVER: No masses BILIARY: The gallbladder is distended without wall thickening or pericholecystic inflammation. SPLEEN: No masses PANCREAS: No masses ADRENALS: No nodules KIDNEYS: Symmetric perfusion. No enhancing masses. No hydronephrosis. GI TRACT: Focal narrowing of the sigmoid colon with mild surrounding inflammation resulting in persistent partial large bowel obstruction. No associated abscess. VESSELS: Unremarkable PERITONEUM/RETROPERITONEUM: No free air or fluid LYMPH NODES: No lymphadenopathy REPRODUCTIVE ORGANS: Unremarkable BLADDER: Unremarkable SOFT TISSUES: Tiny fat-containing umbilical hernia. Subcutaneous emphysema anterior abdominal subcutaneous tissues consistent with injection site. Mild dependent subcutaneous edema posteriorly. BONES: No suspicious bone lesions. IMPRESSION: Stable findings of partial large bowel obstruction secondary to narrowing of the sigmoid colon that could be secondary to stricture or neoplasm. No abscess formation. Signed by: Dr. Roldan Beasley M.D. on 08/13/2017 10:26 PM Dictated By: ROLDAN BEASLEY MD 25 Transcribed By: STEPHEN on 08/13/172225 COPY TO: KATHERINE WALL MD [facility] (PORTABLE) [place] [address] Patient Name: PADMINI WALTERS JR MR #: [id number] : 1945 Age/Sex: 72/M [id number] Req #: [id number] Adm Physician: Ordered by: SINA NAJERA MD Report #: [id number] Location: ER Room/Bed: Procedure: [id number] DX/CHEST SINGLE (PORTABLE) Exam Date: 08/07/17 Exam Time: 2335 REPORT STATUS: Signed CHEST SINGLE (PORTABLE), 08/07/2017 9:36 PM Technique: CHEST SINGLE (PORTABLE) Comparison: None available. Clinical history: Fever Findings: Limited by over penetration. Impression: 1. Mildly enlarged cardiac silhouette likely accentuated by technique. 2. Rounded right hilar 2.6 cm opacity may reflect pulmonary artery, node or lesion. Recommend upright PA and lateral for better evaluation. 3. No acute pulmonary or pleural abnormality. Signed by: Dr Molly Francisco MD on 08/08/2017 12:01 AM Dictated By: MOLLY FRANCISCO MD 43 Transcribed By: STEPHEN on 08/08/172343 COPY TO: SINA NAJERA MD CT ABDOMEN/PELVIS [place] [address] Patient Name: PADMINI WALTERS JR MR #: [id number] : 1945 Age/Sex: 72/M [id number] Req #: [id number] Adm Physician: Ordered by: SINA NAJERA MD Report #: [id number] Location: ER Room/Bed: Procedure: [id number] CT/CT ABDOMEN/PELVIS WO Exam Date: 08/07/17 Exam Time: 2343 REPORT STATUS: Signed EXAM: CT ABDOMEN/PELVIS WO DATE: 08/07/2017 9:36 PM INDICATION: S ABD PAIN, FEVER,N,V,D S [id number] S [address]. No history of prior surgery. COMPARISON: None TECHNIQUE: The abdomen and pelvis were scanned using a multidetector helical scanner. Coronal and sagittal reformations were obtained. Routine protocol performed. IV Contrast: None Oral contrast was administered. FINDINGS: Lack of IV contrast decreases sensitivity in evaluating abdominal and pelvic organs. LOWER THORAX: Right basilar and lingular scarring. LIVER/BILIARY: No masses. No ductal dilatation. GALLBLADDER: Unremarkable SPLEEN: Unremarkable PANCREAS: Unremarkable ADRENALS: No nodules KIDNEYS: No stone disease. No hydronephrosis. GI TRACT: Moderate diffuse dilation of the colon with focal caliber change at the sigmoid, where there is mild focal narrowing and minimal adjacent infiltration of the fat. Possibly pseudosacculation or large diverticulum of the sigmoid proximally. Mild gas and stool is seen distally. VESSELS: Mild atherosclerotic calcification PERITONEUM/RETROPERITONEUM: No free air or fluid LYMPH NODES: No lymphadenopathy REPRODUCTIVE ORGANS/BLADDER: Unremarkable SOFT TISSUES: Small fat-containing umbilical hernia. BONES: No suspicious bone lesions. IMPRESSION: Evaluation of the bowel is degraded by lack of IV contrast. Partial large bowel obstruction with focal caliber change at the sigmoid colon. This could be due to diverticular/ischemic stricture versus neoplasm. Recommend follow up colonoscopy. Signed by: Dr Molly Francisco MD on 08/08/2017 12:17 AM Dictated By: MOLLY FRANCISCO MD Transcribed By: STEPHEN on 08/08/1716 COPY TO: SINA NAJERA MD
[2018-11-12 11:27] VITALS: BP 158/70
== END | disposition home or self-care (01) ==
LOC: OR 06:54
PROVIDERS: ATTEND Internal Medicine Gastroenterology
DX: K56.699 Other intestinal obstruction unspecified as to partial versus complete obstruction (principal); K57.30 Diverticulosis of large intestine without perforation or abscess without bleeding; R14.3 Flatulence; K64.8 Other hemorrhoids; K64.4 Residual hemorrhoidal skin tags; R19.7 Diarrhea, unspecified; R93.89 Abnormal findings on diagnostic imaging of other specified body structures; Z71.3 Dietary counseling and surveillance; E66.9 Obesity, unspecified; I10 Essential (primary) hypertension; Z01.810 Encounter for preprocedural cardiovascular examination; Z01.812 Encounter for preprocedural laboratory examination; Z68.32 Body mass index [BMI] 32.0-32.9, adult; Z87.891 Personal history of nicotine dependence
CPT/HCPCS: 36415; 45380; 85025; 88305; 93005; J2704

== ENCOUNTER 2018-11-26 06:44 | Inpatient (IN) | payer MEDICARE ==
[2018-11-24 10:45] LABS: BASOPHILS % 0.3 % (0.0-1.0); EOSINOPHILS # (AUTO) 0.1 (0.0-0.4); HEMATOCRIT 40.7 % (38.2-49.6); HEMOGLOBIN 13.2 g/dL (14.0-18.0); LYMPHOCYTES # (AUTO) 1.7 (1.0-3.2); LYMPHOCYTES % 28.6 % (18.0-39.1); MEAN CORPUSCULAR HEMOGLOBIN 28.3 pg (28-32); MEAN CORPUSCULAR HGB CONC 32.4 g/dL (31-35); MEAN CORPUSCULAR VOLUME 87.2 fL (81-99); MONOCYTES # (AUTO) 0.5 (0.2-0.8); MONOCYTES % 7.7 % (4.4-11.3); NEUTROPHILS # (AUTO) 3.7 (2.1-6.9); NEUTROPHILS % 61.1 % (38.7-80.0); PLATELET COUNT 195 x10e3/uL (140-360); RED BLOOD COUNT 4.67 x10e6/uL (4.3-5.7); RED CELL DISTRIBUTION WIDTH 13.6 % (11.7-14.4)
[2018-11-24 11:03] LABS: ANION GAP 9.6 mmol/L (8-16); BLOOD UREA NITROGEN 16 mg/dL (7-26); BUN/CREATININE RATIO 14 (6-25); CALCIUM 9.4 mg/dL (8.4-10.2); CARBON DIOXIDE 31 mmol/L (22-29); CHLORIDE 104 mmol/L (98-107); CREATININE, SERUM 1.13 mg/dL (0.72-1.25); EST GLOMERULAR FILTRATION RATE > 60 ML/MIN (60-); GLUCOSE 85 mg/dL (74-118); POTASSIUM 4.6 mmol/L (3.5-5.1); SODIUM 140 mmol/L (136-145)
--- NOTE | 2018-11-24 12:15 | Diagnostic Imaging Report ---
EXAMINATION: CHEST 2 VIEWS INDICATION: Pre-op. COMPARISON: CT abdomen/pelvis 09/23/2018. FINDINGS: TUBES and LINES: None. LUNGS: Lungs are well inflated. Mild patchy bibasilar opacities. There is no evidence of pneumonia or pulmonary edema. PLEURA: No pleural effusion or pneumothorax. HEART AND MEDIASTINUM: The cardiomediastinal silhouette is unremarkable. The aorta is ectatic and tortuous. BONES AND SOFT TISSUES: No acute osseous abnormality. Mild loss of vertebral body height at the T12 level is unchanged from prior studies. UPPER ABDOMEN: No free air under the diaphragm. IMPRESSION: No acute radiographic abnormality. Signed by: Dr. Neil Bosch MD on 11/24/2018 12:12 PM
[~2018-11-26] VITALS: Ht 172.7 cm; Wt 94.9 kg
[2018-11-26] VITALS (7 sets, daily range): BP systolic 145–186; BP diastolic 80–106
[~2018-11-26 06:44] MED LIST changes: -PROPOFOL IV EMULSION 10 MG/ML 20 ML VIAL ONE
[2018-11-26] MEDS ORDERED: MINERAL OIL STERILE 10ML VIAL ONE (12:11)
[2018-11-26] MEDS: SODIUM CHLORIDE 0.9% 1000ML 1,000 ML IV SCH ×2 (15:26→21:29)
[2018-11-26] MEDS ORDERED: ONDANSETRON HCL INJ 2MG/ML 2ML 2 MG/ML VIAL IV PRN (15:30)
[2018-11-26] MEDS ORDERED: HYDROMORPHONE 1MG/1ML INJ IV PRN (15:30)
[2018-11-26] MEDS ORDERED: FUROSEMIDE INJ 10 MG/ML 4 ML VIAL ONE (15:54)
[2018-11-26] MEDS ORDERED: HYDROMORPHONE 2MG/ML 2 MG/ML ML ONE (15:55)
[2018-11-26] MEDS ORDERED: HYDROMORPHONE 2MG/ML 2 MG/ML ML IV PRN (17:00)
[2018-11-26] MEDS: ACETAMINOPHEN 1000 MG/100 ML IV PRN (17:34)
[2018-11-26] MEDS ORDERED: CEFOXITIN 1GM/ D5W 50ML 50 ML IV SCH (18:00)
[2018-11-26] MEDS: SODIUM CHLORIDE 0.9% 250ML IRRIG IR SCH ×3 (18:26→23:59)
[2018-11-26] MEDS: PANTOPRAZOLE 40 MG 10ML VIAL IV SCH (18:26)
[2018-11-26] MEDS: CEFOXITIN 1GM/ D5W 50ML 50 ML IV SCH (18:41)
--- NOTE | 2018-11-26 19:00 | NUR ---
Bedside report received from Sadaf SARGENT and Saskia SARGENT.
[2018-11-26] MEDS ORDERED: LIDOCAINE HCL 2% LOCAL INJ 5 ML SDV VIAL INJ ONE (19:37)
[2018-11-26] MEDS ORDERED: EPHEDRINE SULFATE INJ 50 MG/10 ML SYR ONE (19:37)
[2018-11-26] MEDS ORDERED: ROCURONIUM BROMIDE 10 MG/ML 5ML VIAL ONE (19:37)
[2018-11-26] MEDS ORDERED: GLYCOPYRROLATE INJ 1MG/ 5 ML SYR ONE (19:37)
[2018-11-26] MEDS ORDERED: CEFOXITIN SOD 1 GM VIAL ONE (19:37)
[2018-11-26] MEDS ORDERED: ONDANSETRON HCL INJ 2MG/ML 2ML 2 MG/ML VIAL ONE (19:37)
[2018-11-26] MEDS ORDERED: DEXAMETHASONE SOD PHOS INJ 4 MG/ML VIAL ONE (19:37)
[2018-11-26] MEDS ORDERED: SEVOFLURANE INHAL SOLN 250 ML PEN BTL ONE (19:37)
[2018-11-26] MEDS ORDERED: NEOSTIGMINE 5 MG/5ML SYR ONE (19:37)
[2018-11-26] MEDS ORDERED: PROPOFOL IV EMULSION 10 MG/ML 20 ML VIAL ONE (19:37)
[2018-11-26] MEDS ORDERED: MIDAZOLAM HCL 2 MG/2 ML VIAL ONE (19:45)
[2018-11-26] MEDS ORDERED: FENTANYL CITRATE/PF 100MCG/2 ML INJ ONE (19:45)
[2018-11-26] MEDS: NITROGLYCERIN 2% OINT 1 GM PKT TOP SCH (19:56)
--- NOTE | 2018-11-26 23:31 | Operative Report ---
DATE OF PROCEDURE: 11/26/2018 SURGEON: Chetan Swanson MD PREOPERATIVE DIAGNOSIS: Colonic sigmoid diverticulitis with sigmoid stricture and colon obstruction. POSTOPERATIVE DIAGNOSIS: Colonic sigmoid diverticulitis with sigmoid stricture and colon obstruction. OPERATION PERFORMED: Exploratory laparotomy, low anterior resection with mobilization of the splenic flexure and transanal stapled anastomosis. ASSISTANTS: 1. Dajuan Swanson MD. 2. MALVIN Casillas. ANESTHESIA: General. COMPLICATIONS: None. ESTIMATED BLOOD LOSS: 200 mL. DESCRIPTION OF PROCEDURE: With the patient lying in bed in the supine position with the legs in stirrups, the abdomen and perineum were prepped with Betadine solution and draped in the usual manner. A midline incision was made, was carried down through the subcutaneous tissue down to the midline fascia. The midline fascia was opened. The peritoneum was opened and the abdomen was entered. Upon entering the abdominal cavity, exploration revealed about the level of the mid sigmoid colon, there was a loop of bowel stuck to the lateral gutter with a hard mass associated with it. The distal colon was decompressed and the proximal colon was distended consistent with obstruction. The rest of the abdominal exploration did not show any other significant abnormalities. The left colon was then mobilized of the lateral gutter and the area of the stricture was mobilized medially. This is a rather tight stricture and it was somewhat suspicious. The left ureter was identified and preserved. The splenic flexure was then brought down using the EnSeal device and the colon was then divided at the level of the descending colon with an application of a NICKIE-75 stapler. The mesentery of the colon was then scored and taken down using the EnSeal device all the way up to the rectosigmoid junction at which point, the rectosigmoid junction was divided with an application of the contour stapler. The specimen was sent for pathological examination. Frozen section came back as benign colonic stricture likely from diverticulitis. No sign of malignancy. The colon was then opened proximally and decompressed. After this was done and all the liquid was aspirated, the staple line was removed and a 33-EEA anvil was then placed in the proximal colon and sutured in place with a 2-0 Prolene pursestring suture and a 2-0 Prolene tie. At this point, we went in from below and the colon was dilated with the EEA dilators all the way up to a size 33. A size 33 stapler was then introduced transanally and brought out right through the posterior aspect of the staple line in the middle of the rectosigmoid junction. The stapler and anvil were then joined and the stapler was closed and fired. Two perfect donuts were obtained. After this was done, gloves and instruments were then changed and the anastomosis was reinforced circumferentially using interrupted sutures of 3-0 silk, thus achieving a 2nd layer of closure since the patient had obstructed proximal colon. We wanted to make sure that we had complete coverage of the staple line. After this was done, the abdomen was then copiously irrigated. Perfect hemostasis was ascertained. A 10 flat Louis- Zafar drain was left in the pelvis and brought out through the right lower quadrant and the abdomen was then closed in layers. The peritoneum was closed with a running suture of #1 Vicryl. The midline fascia was closed with a running suture of #1 Vicryl. Subcutaneous tissue was approximated with 2-0 chromic and the skin was closed with clips. Dressings were applied. The sponge, lap, and needle count was correct. The patient tolerated the procedure well and returned to the recovery room in stable condition. MD BENTLEY Roman/JONNY /[id number] MTDMo
[2018-11-27] VITALS (24 sets, daily range): BP systolic 124–164; BP diastolic 43–88
[2018-11-27] MEDS: CEFOXITIN 1GM/ D5W 50ML 50 ML IV SCH
[2018-11-27] MEDS: ACETAMINOPHEN 1000 MG/100 ML IV PRN ×2 (01:39→20:32)
[2018-11-27] MEDS: SODIUM CHLORIDE 0.9% 250ML IRRIG IR SCH ×5 (02:39→18:31)
[2018-11-27] MEDS: SODIUM CHLORIDE 0.9% 1000ML 1,000 ML IV SCH ×3 (05:06→18:30)
[2018-11-27 05:11] LABS: BASOPHILS % 0.1 % (0.0-1.0); HEMATOCRIT 30.7 % (38.2-49.6); HEMOGLOBIN 10.1 g/dL (14.0-18.0); LYMPHOCYTES # (AUTO) 0.7 (1.0-3.2); MEAN CORPUSCULAR HEMOGLOBIN 28.5 pg (28-32); MEAN CORPUSCULAR HGB CONC 32.9 g/dL (31-35); MEAN CORPUSCULAR VOLUME 86.7 fL (81-99); MONOCYTES # (AUTO) 1.2 (0.2-0.8); MONOCYTES % 6.6 % (4.4-11.3); NEUTROPHILS # (AUTO) 15.6 (2.1-6.9); NEUTROPHILS % 88.8 % (38.7-80.0); PLATELET COUNT 194 x10e3/uL (140-360); RED BLOOD COUNT 3.54 x10e6/uL (4.3-5.7); RED CELL DISTRIBUTION WIDTH 13.3 % (11.7-14.4)
[2018-11-27 05:28] LABS: ANION GAP 14.4 mmol/L (8-16); CALCIUM 8.1 mg/dL (8.4-10.2); CREATININE, SERUM 1.92 mg/dL (0.72-1.25); POTASSIUM 5.4 mmol/L (3.5-5.1)
--- NOTE | 2018-11-27 06:11 | NUR ---
0609 - Dr. Swanson paged. 0611 - Dr. Swanson return called. Informed him of the pts WBC count of 17.53. He stated that this is expects post-operatively. No new orders received at this time. Charge Nurse Dana Henriquez RN notified.
[2018-11-27] MEDS: NITROGLYCERIN 2% OINT 1 GM PKT TOP SCH ×4 (06:22→17:56)
--- NOTE | 2018-11-27 07:00 | NUR ---
Bedside report given Sadaf Figueroa RN and Saskia SARGENT. No signs of distress noted at this time. Care plan reviewed. Pts family is at the bedside.
[2018-11-27 07:30] LABS: ANISOCYTOSIS SLIGHT; BAND NEUTROPHILS % (MANUAL) 4 %; HYPOCHROMASIA SLIGHT; LYMPHOCYTES % (MANUAL) 3 % (19-48); MONOCYTES % (MANUAL) 5 % (3.4-9.0); NEUTROPHILS % (MANUAL) 87 % (40-74); PLATELET ESTIMATE ADEQUATE; PLATELET MORPHOLOGY COMMENT NORMAL; PROMYELOCYTES % (MANUAL) 1 % (0-0); RBC MORPHOLOGY COMMENT NORMAL
[2018-11-27] MEDS: HYDROMORPHONE 2MG/ML 2 MG/ML ML IV PRN ×2 (07:45→17:51)
[2018-11-27] MEDS: PANTOPRAZOLE 40 MG 10ML VIAL IV SCH (15:08)
--- NOTE | 2018-11-27 16:40 | NUR ---
NGT inserted per order Addendum: 11/27/18 at 1819 by Sadaf Michel RN wrong pt
[2018-11-27] MEDS: CEFTRIAXONE SOD 1 GM/NS 50 ML 50 ML IV SCH (19:35)
[2018-11-28] VITALS (23 sets, daily range): BP systolic 102–179; BP diastolic 45–86
[2018-11-28] MEDS: HYDROMORPHONE 2MG/ML 2 MG/ML ML IV PRN ×2 (00:22→19:05)
[2018-11-28] MEDS: SODIUM CHLORIDE 0.9% 250ML IRRIG IR SCH ×7 (00:22→23:30)
[2018-11-28] MEDS: NITROGLYCERIN 2% OINT 1 GM PKT TOP SCH ×3 (00:22→12:00)
[2018-11-28] MEDS: SODIUM CHLORIDE 0.9% 1000ML 1,000 ML IV SCH ×5 (00:46→16:25)
[2018-11-28 06:40] LABS: BASOPHILS % 0.1 % (0.0-1.0); HEMATOCRIT 30.1 % (38.2-49.6); HEMOGLOBIN 9.6 g/dL (14.0-18.0); LYMPHOCYTES % 7.6 % (18.0-39.1); MEAN CORPUSCULAR HEMOGLOBIN 28.9 pg (28-32); MEAN CORPUSCULAR HGB CONC 31.9 g/dL (31-35); MEAN CORPUSCULAR VOLUME 90.7 fL (81-99); MONOCYTES # (AUTO) 1.1 (0.2-0.8); MONOCYTES % 7.9 % (4.4-11.3); NEUTROPHILS # (AUTO) 11.1 (2.1-6.9); NEUTROPHILS % 83.6 % (38.7-80.0); PLATELET COUNT 152 x10e3/uL (140-360); RED BLOOD COUNT 3.32 x10e6/uL (4.3-5.7); RED CELL DISTRIBUTION WIDTH 14.1 % (11.7-14.4)
[2018-11-28 07:10] LABS: ANION GAP 10.1 mmol/L (8-16); CALCIUM 8.4 mg/dL (8.4-10.2); CREATININE, SERUM 1.52 mg/dL (0.72-1.25)
[2018-11-28 07:13] LABS: POTASSIUM 5.1 mmol/L (3.5-5.1)
--- NOTE | 2018-11-28 10:08 | NUR ---
pt oob to chair. tolerates well. family at bedside.
--- NOTE | 2018-11-28 11:31 | NUR ---
Nutrition Intervention Note RD Recommendation(s) for Physician: when medically feasible initiate a GI soft diet Plan of Care: RD following, monitoring for tolerance and adequacy Nutrition reason for involvement: Nutrition Risk Trigger - MST RD Assessment Initial encounter with patient. Pt states that he has lost about 80 pounds over the past 3 years due to GI problems including diarrhea, constipation and rumbling stomach. Pt was not eating well when he has these problems. Pt is well known from previous admissions. Pt denies any difficulty chewing or swallowing, Missing teeth, denies any nausea, No BM. Principal Problems/Diagnoses: Chronic sigmoid Diverticulosis PMH: HTN, recurrent bowel obstructions, diverticulitis IVF: NaCl at 150ml/h GI: soft abd, +flatus, no BM, NGT to suction and output noted Skin: surgical incision Labs: (11/28/2018) lab results reviewed Meds: (11/28/2018) lab results reviewed Malnutrition Evaluation (11/28/18) The patient meets criteria for MODERATE protein-calorie malnutrition. Energy intake:<75% of estimated energy requirements for >1 month Weight loss: 10% over 2 years Fat loss: No loss identified Muscle loss: no loss identified Supporting Evidence: Fluid accumulation: no LE edema Functional Status: None Diet Education Needs Assessment: Diet education not indicated. Ht:68 Wt:210lbs BMI:31.9kg/m2 IBW:154lbs Estimated Nutritional Needs: 1909 - 2100 kcals at 20-22 kcals/kg/bw 95g of protein 1g/kg/bw Nutrition Prescription (Diet Order):NPO Food Allergies: None Diet Adequacy: Not meeting calorie needs, Not meeting protein needs) Tolerance: NPO Nutrition Care Level: Moderate Nutrition Diagnosis: Altered GI function related to diverticulitis as evidenced diverticular stricture. Goal:Patient will meet 75-100% of estimated needs by follow up Progress: Not Progressing Interventions: General healthful diet, Schedule of food, -modified diet, Commercial beverage, Commercial food, Composition, Rate, Route, IVF, Prescription medications Monitoring/Evaluation: Total energy intake, Total protein intake, Formula/Solution, IVF, Prescription medication, Modified diet, Liquid supplement, Weight change Brian Wadsworth RD, LD, CNSC
[2018-11-28] MEDS: ACETAMINOPHEN 1000 MG/100 ML IV PRN ×2 (14:36→19:05)
[2018-11-28] MEDS: LOSARTAN POTASSIUM 25 MG TAB PO SCH (16:26)
[2018-11-28] MEDS: PANTOPRAZOLE 40 MG 10ML VIAL IV SCH (16:33)
[2018-11-28] MEDS: CEFTRIAXONE SOD 1 GM/NS 50 ML 50 ML IV SCH (20:43)
[2018-11-29] VITALS (16 sets, daily range): BP systolic 128–192; BP diastolic 50–84
[2018-11-29] MEDS: SODIUM CHLORIDE 0.9% 1000ML 1,000 ML IV SCH ×3 (01:04→23:31)
[2018-11-29] MEDS: SODIUM CHLORIDE 0.9% 250ML IRRIG IR SCH ×6 (03:30→23:30)
[2018-11-29 05:35] LABS: BASOPHILS % 0.2 % (0.0-1.0); EOSINOPHILS # (AUTO) 0.1 (0.0-0.4); EOSINOPHILS % 0.4 % (0.0-6.0); HEMATOCRIT 30.9 % (38.2-49.6); HEMOGLOBIN 9.7 g/dL (14.0-18.0); LYMPHOCYTES # (AUTO) 1.7 (1.0-3.2); LYMPHOCYTES % 13.6 % (18.0-39.1); MEAN CORPUSCULAR HEMOGLOBIN 28.4 pg (28-32); MEAN CORPUSCULAR HGB CONC 31.4 g/dL (31-35); MEAN CORPUSCULAR VOLUME 90.4 fL (81-99); MONOCYTES # (AUTO) 0.9 (0.2-0.8); MONOCYTES % 7.4 % (4.4-11.3); NEUTROPHILS # (AUTO) 9.7 (2.1-6.9); NEUTROPHILS % 77.8 % (38.7-80.0); PLATELET COUNT 160 x10e3/uL (140-360); RED BLOOD COUNT 3.42 x10e6/uL (4.3-5.7)
[2018-11-29 06:02] LABS: ANION GAP 11.5 mmol/L (8-16); BLOOD UREA NITROGEN 18 mg/dL (7-26); BUN/CREATININE RATIO 17 (6-25); CALCIUM 8.7 mg/dL (8.4-10.2); CARBON DIOXIDE 23 mmol/L (22-29); CHLORIDE 106 mmol/L (98-107); CREATININE, SERUM 1.04 mg/dL (0.72-1.25); EST GLOMERULAR FILTRATION RATE > 60 ML/MIN (60-); GLUCOSE 82 mg/dL (74-118); POTASSIUM 4.5 mmol/L (3.5-5.1); SODIUM 136 mmol/L (136-145)
[2018-11-29] MEDS: ACETAMINOPHEN 1000 MG/100 ML IV PRN ×2 (06:15→11:50)
[2018-11-29] MEDS: LOSARTAN POTASSIUM 25 MG TAB PO SCH (10:47)
[2018-11-29] MEDS: CLONIDINE HCL 0.2 MG TAB PO PRN (14:51)
[2018-11-29] MEDS: PANTOPRAZOLE 40 MG 10ML VIAL IV SCH (14:51)
--- NOTE | 2018-11-29 17:30 | NUR ---
RECEIVED REPORT FROM ELISSA IN ICU. AWAITING FOR TO ARRIVE TO FLOOR
--- NOTE | 2018-11-29 17:30 | NUR ---
report called to [facility]. pt transferred via wc. no tele ordered. daughter at his bedside.
--- NOTE | 2018-11-29 17:56 | NUR ---
PT ARRIVED TO UNIT AA0X3. PT IS SITTING UP IN CHAIR. FAM IS AT BEDSIDE. PT C/O PAIN OF A 4/10 TO ABD. PAGED NAY FOR PT REQUEST OF TYLENOL PO. PT ABD IS COVERED WITH FOAM TAPE AND ABD BINDER. CLEAN AND DRY. SECURED STEPH DRAIN TO ABD BINDER. WILL CONTINUE TO CARE FOR PT AT THIS TIME, SIDE RAILSX2, BED WHEELS LOCKED , INSTRUCTED TO CALL FOR ASSISTANCE IF NEEDED
[2018-11-29] MEDS: ACETAMINOPHEN 325 MG TAB PO PRN (18:30)
--- NOTE | 2018-11-29 18:33 | NUR ---
PRN TYLENOL GIVEN FOR H/A AT THIS TIME PER MD NAY ORDERS. PT EATING CLEAR LIQUID DIET AT THIS TIME
[2018-11-29] MEDS: CEFTRIAXONE SOD 1 GM/NS 50 ML 50 ML IV SCH (21:45)
[2018-11-30] VITALS (8 sets, daily range): BP systolic 153–178; BP diastolic 71–82
[2018-11-30] MEDS: SODIUM CHLORIDE 0.9% 250ML IRRIG IR SCH (03:30)
[2018-11-30] MEDS: SODIUM CHLORIDE 0.9% 1000ML 1,000 ML IV SCH ×2 (04:22→13:32)
[2018-11-30] MEDS: CLONIDINE HCL 0.2 MG TAB PO PRN ×3 (04:58→16:41)
--- NOTE | 2018-11-30 07:18 | NUR ---
REPORT GIVEN TO ONCOMING NURSE.WALKING ROUNDS MADE.PT RESTING IN BED WITH NO S/S OF DISTRESS.
[2018-11-30] MEDS: LOSARTAN POTASSIUM 25 MG TAB PO SCH (08:35)
[2018-11-30] MEDS ORDERED: HYDROMORPHONE 2MG/ML 2 MG/ML ML IV PRN (12:00)
--- NOTE | 2018-11-30 12:26 | NUR ---
PRN CATAPRESS GIVEN FOR A BP OF 173/80
[2018-11-30] MEDS: ACETAMINOPHEN 325 MG TAB PO PRN (15:26)
[2018-11-30] MEDS: PANTOPRAZOLE 40 MG 10ML VIAL IV SCH (16:02)
--- NOTE | 2018-11-30 16:41 | NUR ---
catapress given again for bp of 168/80 at this time
--- NOTE | 2018-11-30 17:24 | NUR ---
md azael dean ok protonix medication on emar to be changed from iv to po at this time (shortage on iv protonix in pharmacy at this time)
[2018-11-30] MEDS: CEFTRIAXONE SOD 1 GM/NS 50 ML 50 ML IV SCH (20:53)
[2018-12-01] VITALS (7 sets, daily range): BP systolic 134–174; BP diastolic 69–83
[2018-12-01] MEDS: CLONIDINE HCL 0.2 MG TAB PO PRN ×2 (00:13→08:31)
--- NOTE | 2018-12-01 07:20 | NUR ---
REPORT GIVEN TO ONCOMING NURSE.WALKING ROUNDS MADE.PT RESTING IN BED WITH NO S/S OF DISTRESS.
[2018-12-01] MEDS: PANTOPRAZOLE SOD 40 MG TABEC PO SCH (08:30)
[2018-12-01] MEDS: LOSARTAN POTASSIUM 25 MG TAB PO SCH (08:31)
[2018-12-01] MEDS: HYDROCODONE/APAP 7.5MG-325MG 1 EA TAB PO PRN (12:42)
[2018-12-01] MEDS: SODIUM CHLORIDE 0.9% 1000ML 1,000 ML IV SCH (17:00)
[2018-12-01] MEDS: CEFTRIAXONE SOD 1 GM/NS 50 ML 50 ML IV SCH (19:54)
--- NOTE | 2018-12-01 19:54 | NUR ---
DRESSING DRY AND INTACT TO THE ABDOMEN WITHOUT BLEEDING, STEPH DRAIN INTACT. BOWEL SOUND HYPOACTIVE, ABDOMINAL BINDER INTACT. IV FLUID INFUSING ORDERED, CALL LIGHT WITHIN EASY REACH, PATIENT DENIES PAIN AT THIS TIME.
--- NOTE | 2018-12-01 23:27 | NUR ---
PATIENT IS ASLEEP, NO RESPIRATORY DISTRESS OBSERVED. CALL LIGHT WITHIN EASY REACH, WILL CONTINUE TO MONITOR.
[2018-12-02] VITALS (7 sets, daily range): BP systolic 133–162; BP diastolic 62–80
[2018-12-02] MEDS: ACETAMINOPHEN 325 MG TAB PO PRN ×2 (00:50→20:33)
--- NOTE | 2018-12-02 00:52 | NUR ---
PATIENT C/O MILD PAIN TO THE ABDOMEN WITH PAIN SCORE #2, MEDICATED WITH TYLENOL ORDERED. CALL LIGHT WITHIN EASY REACH, INSTRUCTED TO CALL FOR ASSISTANCE NEEDED.
[2018-12-02] MEDS: HYDROCODONE/APAP 7.5MG-325MG 1 EA TAB PO PRN ×2 (03:50→17:00)
--- NOTE | 2018-12-02 03:51 | NUR ---
PATIENT C/O PAIN TO THE ABDOMEN WITH PAIN SCORE #4, MEDICATED WITH NORCO 1TAB ORDERED. CALL LIGHT WITHIN EASY REACH, ASSISTED WITH ADLS.
[2018-12-02] MEDS: PANTOPRAZOLE SOD 40 MG TABEC PO SCH (08:31)
[2018-12-02] MEDS: LOSARTAN POTASSIUM 25 MG TAB PO SCH (08:32)
[2018-12-02] MEDS ORDERED: ONDANSETRON HCL 4 MG ORAL DISINTEGRATING TAB PO PRN (12:00)
--- NOTE | 2018-12-02 19:25 | NUR ---
Report given to oncoming nurse of patient's status. No s/s of acute distress noted.
[2018-12-02] MEDS: CEFTRIAXONE SOD 1 GM/NS 50 ML 50 ML IV SCH (20:03)
--- NOTE | 2018-12-02 20:14 | NUR ---
BISHOP DRY AND INTACT TO THE ABDOMEN, CONDITION STABLE WITHOUT ACUTE DISTRESS. WAS IN TO SEE THE PATIENT, STEPH DRAIN REMOVED BY THE DOCTOR AND PLAN IS TO DISCHARGE THE PATIENT TO HOME IN THE MORNING.
--- NOTE | 2018-12-02 23:16 | NUR ---
PATIENT RESTING COMFORTABLY IN BED, NO RESPIRATORY DISTRESS OBSERVED, HE C/O MILD PAIN TO THE ABDOMEN. CALL LIGHT WITHIN EASY REACH, HE'S INSTRUCTED TO CALL FOR ASSISTANCE NEEDED.
[2018-12-03] VITALS: BP 119/59
[2018-12-03] MEDS: ACETAMINOPHEN 325 MG TAB PO PRN (03:11)
--- NOTE | 2018-12-03 03:12 | NUR ---
WALKING ROUNDS MADE, PATIENT C/O MILD PAIN TO THE ABDOMEN WITH PAIN SCORE #2, MEDICATED WITH TYLENOL ORDERED. NO RESPIRATORY DISTRESS OBSERVED, CALL LIGHT WITHIN EASY REACH.
[2018-12-03 04:00] VITALS: BP 162/74
--- NOTE | 2018-12-03 07:30 | NUR ---
PT RESTING IN BED AA0X3. PT IS IN NO S.S OF DISTRESS. DENIES PAIN. PT HAS A RIGHT HAND 20 SL PATENT AND DRY ABD INCISION IS OPEN TO AIR, BISHOP ARE CLEAN AND DRY. LOWER LEFT DRESSING S/P STEPH DRAIN REMOVAL IS DRY AND INTACT. WILL DO MORNING ASSESSMENT AND ADMINISTER MORNING MEDS AND INITIATE DC PAPERWORK SIDE RAILSX2, BED WHEELS LOCKED CALL LIGHT IS WITHIN EASY REACH, INSTRUCTED TO CALL FOR ASSISTANCE IF NEEDED
[2018-12-03] MEDS ORDERED: KEFLEX500 MG PO (07:31)
[2018-12-03] MEDS ORDERED: TYLENOL WITH C1 EACH PO (07:31)
[2018-12-03 08:00] VITALS: BP 167/77
[2018-12-03 08:05] VITALS: BP 167/77
--- NOTE | 2018-12-03 08:06 | NUR ---
DC INSTRUCTIONS GIVEN AND PRESCRIPTIONS. PT VERBALIZED UNDERSTANDING. IV DC PRESSURE DRESSING APPLIED AND TAPED. PT IS NOW WAITING FOR RIDE TO HOME
== END 2018-12-03 09:10 | disposition home or self-care (01) | DRG 330 ==
LOC: OR 06:44 → PACU V 16:20 → ICU 16:49 → MED/SURG 11-29 17:38
PROVIDERS: ADMIT Surgery; ATTEND Surgery
PROC: 0DTN0ZZ Resection of Sigmoid Colon, Open Approach (ICD-10-PCS; principal; 2018-11-26 09:30)
DX: K57.32 Diverticulitis of large intestine without perforation or abscess without bleeding (principal); K56.699 Other intestinal obstruction unspecified as to partial versus complete obstruction; I10 Essential (primary) hypertension; E66.9 Obesity, unspecified; Z68.31 Body mass index [BMI] 31.0-31.9, adult
CPT/HCPCS: 36415; 71046; 80048; 82948; 85025; 88307; 88329; 96367; 97139; J0694; J0696; J1100; J1940; J2001; J2250; J2405; J7030

== ENCOUNTER 2022-01-08 14:16 | Inpatient (IN) | payer MEDICARE ==
[~2022-01-08] VITALS: Ht 172.7 cm; Wt 94.8 kg
[~2022-01-08 14:16] MED LIST changes: +KEFLEX500 MG PO; +TYLENOL WITH C1 EACH PO
[2022-01-08 15:03] LABS: BASOPHILS % 0.2 % (0.0-1.0); EOSINOPHILS # (AUTO) 0.2 (0.0-0.4); EOSINOPHILS % 2.5 % (0.0-6.0); HEMATOCRIT 41.4 % (38.2-49.6); HEMOGLOBIN 13.5 g/dL (14.0-18.0); LYMPHOCYTES # (AUTO) 1.6 (1.0-3.2); MEAN CORPUSCULAR HEMOGLOBIN 29.6 pg (28-32); MEAN CORPUSCULAR HGB CONC 32.6 g/dL (31-35); MEAN CORPUSCULAR VOLUME 90.8 fL (81-99); MONOCYTES # (AUTO) 0.5 (0.2-0.8); MONOCYTES % 7.6 % (4.4-11.3); NEUTROPHILS # (AUTO) 4.1 (2.1-6.9); NEUTROPHILS % 64.2 % (38.7-80.0); PLATELET COUNT 179 x10e3/uL (140-360); RED BLOOD COUNT 4.56 x10e6/uL (4.3-5.7); RED CELL DISTRIBUTION WIDTH 13.5 % (11.7-14.4)
[2022-01-08 15:14] LABS: INR 0.97; PARTIAL THROMBOPLASTIN TIME 32.7 seconds (23.8-35.5); PROTHROMBIN TIME 13.8 seconds (11.9-14.5)
[2022-01-08 15:21] LABS: ALBUMIN 3.5 g/dL (3.5-5.0); ALBUMIN/GLOBULIN RATIO 0.9 (0.8-2.0); CALCIUM 8.6 mg/dL (8.4-10.2); CREATININE, SERUM 1.86 mg/dL (0.72-1.25)
[2022-01-08 15:28] LABS: CREATINE KINASE MB 2.3 ng/mL (0-5.0)
[2022-01-08] MEDS ORDERED: ASPIRIN 325 MG TAB PO ONE (16:15)
[2022-01-08] MEDS ORDERED: ASPIRIN 81 MG CHEW TAB PO ONE (17:45)
[2022-01-08] MEDS ORDERED: ONDANSETRON HCL INJ 2MG/ML 2ML 2 MG/ML VIAL IV PRN ×2 (17:45→18:45)
[2022-01-08] MEDS ORDERED: CLOPIDOGREL BISULFATE 75 MG TAB PO ONE (18:45)
[2022-01-08 20:00] VITALS: BP 143/85
[2022-01-08] MEDS ORDERED: OXYBUTYNIN CHLOR5 MG PO (20:07)
[2022-01-08] MEDS ORDERED: HYDROCHLOROTHIA25 MG PO (20:07)
[2022-01-08 21:00] VITALS: BP 143/85
[2022-01-08 23:39] LABS: CREATINE KINASE MB 1.8 ng/mL (0-5.0)
[2022-01-09] VITALS (19 sets, daily range): BP systolic 122–156; BP diastolic 63–83
[2022-01-09 05:00] LABS: BASOPHILS % 0.3 % (0.0-1.0); EOSINOPHILS # (AUTO) 0.2 (0.0-0.4); EOSINOPHILS % 2.7 % (0.0-6.0); HEMATOCRIT 42.4 % (38.2-49.6); HEMOGLOBIN 13.9 g/dL (14.0-18.0); LYMPHOCYTES # (AUTO) 1.6 (1.0-3.2); LYMPHOCYTES % 23.8 % (18.0-39.1); MEAN CORPUSCULAR HEMOGLOBIN 29.4 pg (28-32); MEAN CORPUSCULAR HGB CONC 32.8 g/dL (31-35); MEAN CORPUSCULAR VOLUME 89.8 fL (81-99); MONOCYTES # (AUTO) 0.5 (0.2-0.8); NEUTROPHILS # (AUTO) 4.3 (2.1-6.9); NEUTROPHILS % 64.7 % (38.7-80.0); PLATELET COUNT 156 x10e3/uL (140-360); RED BLOOD COUNT 4.72 x10e6/uL (4.3-5.7); RED CELL DISTRIBUTION WIDTH 13.2 % (11.7-14.4)
[2022-01-09 05:35] LABS: ALBUMIN 3.4 g/dL (3.5-5.0); ALBUMIN/GLOBULIN RATIO 0.9 (0.8-2.0); ANION GAP 10.8 mmol/L (8-16); CALCIUM 8.5 mg/dL (8.4-10.2); CREATININE, SERUM 1.43 mg/dL (0.72-1.25); POTASSIUM 3.8 mmol/L (3.5-5.1)
[2022-01-09 06:02] LABS: CHOL/HDL RATIO 6.9 (3.9-4.7)
[2022-01-09 06:25] LABS: THYROID STIMULATING HORMONE 3.606 uIU/mL (0.350-4.940)
[2022-01-09] MEDS: FUROSEMIDE 20 MG TAB PO SCH ×2 (06:32→18:13)
[2022-01-09] MEDS: ASPIRIN 81 MG ENTERIC COATED PO SCH (08:22)
[2022-01-09] MEDS: CARVEDILOL 3.125 MG TAB PO SCH ×2 (08:22→17:30)
[2022-01-09] MEDS: ACETAMINOPHEN 325 MG TAB PO PRN (08:58)
[2022-01-09 09:37] LABS: CREATINE KINASE MB 1.7 ng/mL (0-5.0)
[2022-01-09] MEDS ORDERED: SODIUM CHLORIDE 0.9% 1000ML 1,000 ML ONE (10:51)
[2022-01-09] MEDS ORDERED: HEPARIN SOD/SOD CHLORIDE 2,000 ML ONE (10:51)
[2022-01-09] MEDS ORDERED: IOPAMIDOL 370 MG/ML 100 ML INFUS..BTL INJ ONE (10:51)
[2022-01-09] MEDS ORDERED: VERAPAMIL HCL 2.5 MG/ML 2 ML VIAL ONE (10:52)
[2022-01-09] MEDS ORDERED: MIDAZOLAM HCL 2 MG/2 ML VIAL ONE (10:52)
[2022-01-09] MEDS ORDERED: NITROGLYCERIN/D5W 200 MCG/ML 250 ML ONE (10:52)
[2022-01-09] MEDS ORDERED: FENTANYL CITRATE/PF 100MCG/2 ML INJ ONE (10:53)
[2022-01-09] MEDS: SODIUM CHLORIDE 0.9% 1000ML 1,000 ML IV SCH (15:18)
[2022-01-09] MEDS ORDERED: ATORVASTATIN 40 MG TAB PO SCH (21:00)
[2022-01-09] MEDS ORDERED: ATORVASTATIN 20 MG TAB PO SCH (21:00)
[2022-01-10 00:03] VITALS: BP 146/87
[2022-01-10] MEDS: SODIUM CHLORIDE 0.9% 1000ML 1,000 ML IV SCH (01:02)
[2022-01-10 04:00] VITALS: BP 137/59
[2022-01-10 06:04] LABS: ANION GAP 10.8 mmol/L (8-16); CALCIUM 8.5 mg/dL (8.4-10.2); CREATININE, SERUM 1.44 mg/dL (0.72-1.25); POTASSIUM 3.8 mmol/L (3.5-5.1)
[2022-01-10] MEDS: FUROSEMIDE 20 MG TAB PO SCH ×2 (06:41→17:01)
[2022-01-10 07:45] VITALS: BP 140/68
[2022-01-10 08:24] VITALS: BP 140/68
[2022-01-10] MEDS: CARVEDILOL 3.125 MG TAB PO SCH ×2 (08:24→16:35)
[2022-01-10] MEDS: ASPIRIN 81 MG ENTERIC COATED PO SCH (08:24)
[2022-01-10 11:13] VITALS: BP 143/84
[2022-01-10] MEDS ORDERED: Atorvastatin PO (15:10)
[2022-01-10] MEDS ORDERED: ASPIRIN EC81 MG PO (15:10)
[2022-01-10] MEDS ORDERED: COREG3.125 MG PO (15:10)
[2022-01-10 15:11] VITALS: BP 157/59
[2022-01-10] MEDS ORDERED: ONDANSETRON HCL 4 MG ORAL DISINTEGRATING TAB PO PRN (15:45)
[2022-01-10] MEDS: ACETAMINOPHEN 325 MG TAB PO PRN (16:35)
[2022-01-10] MEDS ORDERED: LASIX40 MG PO (17:49)
== END 2022-01-10 18:58 | disposition home or self-care (01) | DRG 286 ==
LOC: ER 16:14 → ERHOLD 17:37 → MED/SURG 19:45 → OBSVTOIN 01-10 11:12
PROVIDERS: ADMIT Internal Medicine; ATTEND Internal Medicine
PROC: 4A023N7 Measurement of Cardiac Sampling and Pressure, Left Heart, Percutaneous Approach (ICD-10-PCS; principal; 2022-01-09)
PROC: B2111ZZ Fluoroscopy of Multiple Coronary Arteries using Low Osmolar Contrast (ICD-10-PCS; 2022-01-09)
PROC: B2151ZZ Fluoroscopy of Left Heart using Low Osmolar Contrast (ICD-10-PCS; 2022-01-09)
DX: I13.0 Hypertensive heart and chronic kidney disease with heart failure and stage 1 through stage 4 chronic kidney disease, or unspecified chronic kidney disease (principal); I50.23 Acute on chronic systolic (congestive) heart failure; I42.8 Other cardiomyopathies; N18.9 Chronic kidney disease, unspecified; Z96.651 Presence of right artificial knee joint; Z20.822 Contact with and (suspected) exposure to COVID-19; Z86.711 Personal history of pulmonary embolism; Z86.718 Personal history of other venous thrombosis and embolism; E66.9 Obesity, unspecified; G47.33 Obstructive sleep apnea (adult) (pediatric); D64.9 Anemia, unspecified; I73.9 Peripheral vascular disease, unspecified; R26.9 Unspecified abnormalities of gait and mobility; I25.10 Atherosclerotic heart disease of native coronary artery without angina pectoris; Z83.3 Family history of diabetes mellitus; Z82.49 Family history of ischemic heart disease and other diseases of the circulatory system; Z68.31 Body mass index [BMI] 31.0-31.9, adult
CPT/HCPCS: 36415; 71045; 80048; 80053; 80061; 82270; 82550; 82553; 83735; 84443; 84484; 85025; 85610; 85730; 93005; 93306; 93458; 93880; 93970; 94799; 99152; 99153; 99284; C1769; C1887; C1894; G0378; J2250; J3010; J7030; Q9967; U0002